=== PATIENT | female | born 1935 | race Caucasian/White ===

== ENCOUNTER 2017-11-20 18:14 | Observation (INO) | payer MEDICARE ==
[~2017-11-20] VITALS: Ht 162.6 cm; Wt 73.0 kg
[~2017-11-20 18:14] MED LIST: CHOL100024 PO; HYDR-569 PO; INSU100V36 SQ
[2017-11-20 18:52] LABS: BASOPHILS # (AUTO) 0.1 X10'3 (0-0.2); BASOPHILS % (AUTO) 0.9 % (0-1); EOSINOPHILS # (AUTO) 0.1 X10'3 (0-0.9); EOSINOPHILS % (AUTO) 2.3 % (0-6); HEMATOCRIT 41.5 % (35.0-45.0); HEMOGLOBIN 13.9 g/dl (12.0-16.0); LYMPHOCYTES # (AUTO) 1.7 X10'3 (1.1-4.8); LYMPHOCYTES % (AUTO) 28.6 % (21-51); MEAN CORPUSCULAR HEMOGLOBIN 31.8 PG (27.0-31.0); MEAN CORPUSCULAR HGB CONC 33.4 % (33.0-36.5); MEAN CORPUSCULAR VOLUME 95.2 FL (78-98); MEAN PLATELET VOLUME 8.3 FL (7.4-10.4); MONOCYTES # (AUTO) 0.5 X10'3 (0-0.9); MONOCYTES % (AUTO) 8.8 % (2-12); NEUTROPHILS # (AUTO) 3.6 X10'3 (1.8-7.7); NEUTROPHILS % (AUTO) 59.4 % (42-75); PLATELET COUNT 250 X10'3 (140-440); RED BLOOD COUNT 4.36 X10'6 (4.20-5.60); RED CELL DISTRIBUTION WIDTH 12.9 % (11.5-14.5)
[2017-11-20 19:01] LABS: PARTIAL THROMBOPLASTIN TIME 29 SECONDS (22-32); PROTHROMBIN TIME 10.7 SECONDS (9.0-12.0)
[2017-11-20 19:04] LABS: ALANINE AMINOTRANSFERASE 30 U/L (12-78); ALBUMIN 3.7 G/DL (3.4-5.0); ALBUMIN/GLOBULIN RATIO 0.9 (1.1-1.5); ALKALINE PHOSPHATASE 97 IU/L (46-116); ANION GAP 10 (8-16); ASPARTATE AMINO TRANSFERASE 24 U/L (10-37); BILIRUBIN,TOTAL 0.7 MG/DL (0.1-1.0); BLOOD UREA NITROGEN 20 MG/DL (7-18); BUN/CREATININE RATIO 19.2 (6.6-38.0); CALCIUM 9.8 MG/DL (8.5-10.1); CHLORIDE 101 MMOL/L (99-107); CREATININE 1.04 MG/DL (0.40-0.90); GLUCOSE 298 MG/DL (70-104); POTASSIUM 3.8 MMOL/L (3.5-5.1); SODIUM 139 MMOL/L (135-145); TOTAL CARBON DIOXIDE 27.6 MMOL/L (24-32); TOTAL PROTEIN 7.7 G/DL (6.4-8.2); eGFR 51 ML/MIN
[2017-11-20] MEDS ORDERED: cloNIDine 0.1 mg tablet PO ONE (20:25)
[2017-11-20] MEDS ORDERED: ESTR42.53 VG (21:18)
[2017-11-20] MEDS ORDERED: ASPI-920 PO (21:18)
[2017-11-20] MEDS ORDERED: DORZ10DR18 EACHEYE (21:19)
[2017-11-20] MEDS ORDERED: INSU300I (21:19)
[2017-11-21] VITALS (7 sets, daily range): BP systolic 122–174; BP diastolic 47–73
[2017-11-21] MEDS ORDERED: normal saline 1000ml 1,000 ML IV ONE
[2017-11-21] MEDS ORDERED: MESSAGE TO PHARMACY PO ONE (01:40)
[2017-11-21] MEDS ORDERED: insulin Lispro (HumaLOG) vial - multi-dose SQ SCH (01:40)
[2017-11-21] MEDS ORDERED: mag hydrox/Alum hydrox/simeth 30ml oral suspension PO PRN (01:40)
[2017-11-21] MEDS ORDERED: magnesium hydroxide 30ml (MOM) UD suspension PO PRN (01:40)
[2017-11-21] MEDS ORDERED: glucagon, human recombinant 1mg kit SUBCUT PRN (01:40)
[2017-11-21] MEDS ORDERED: bisacodyl 10mg suppository rectal RC PRN (01:40)
[2017-11-21] MEDS ORDERED: dextrose ORAL solution 15 GM/59 ML bottle PO PRN ×2 (01:40)
[2017-11-21] MEDS ORDERED: dextrose 50%-water 50ml dispensing syringe IV PRN ×2 (01:40)
[2017-11-21] MEDS ORDERED: acetaminophen 325mg tablet PO PRN (01:40)
[2017-11-21 02:11] LABS: CLARITY,URINE SLIGHTLY CLOUDY (Clear); COLOR,URINE STRAW (Yellow); GLUCOSE, URINE NEGATIVE (Neg); KETONES,URINE NEGATIVE (Neg); LEUKOCYTE ESTERASE ,URINE LARGE (Neg); NITRITES, URINE POSITIVE (Neg); OCCULT BLOOD,URINE TRACE-INTACT (Neg); PROTEIN,URINE TRACE mg/dl (Neg); UROBILINOGEN,URINE 0.2 E.U/dL (0.2-1.0)
[2017-11-21 02:12] LABS: UA COLLECTION TYPE CLN CATCH MIDSTREAM
[2017-11-21 02:16] LABS: WBC,URINE 50-100 /HPF (0-4)
[2017-11-21 02:17] LABS: BACTERIA,URINE 4+ /HPF (Neg); MUCUS STRANDS FEW /LPF (Neg); RBC,URINE 0-2 /HPF (0-2); SQUAMOUS EPITHELIAL CELL,UR FEW /LPF (FEW)
[2017-11-21] MEDS ORDERED: ESTRADIOL TOP SCH (06:45)
[2017-11-21 07:32] LABS: HEMOGLOBIN A1C 8.5 % (4.5-6.2)
[2017-11-21] MEDS: dorzolamide/timolol (Cosopt) ophthalmic drops 10ml bottle EACHEYE SCH (08:00)
[2017-11-21] MEDS ORDERED: lisinopril 2.5mg tablet PO SCH (08:00)
[2017-11-21] MEDS ORDERED: lisinopril 5mg tablet PO SCH (09:00)
[2017-11-21] MEDS ORDERED: hydrALAZINE 20mg/ml inj. IV PRN (09:00)
[2017-11-21] MEDS: aspirin 81mg tab.chew PO SCH (09:21)
[2017-11-21] MEDS ORDERED: insulin glargine (Lantus) pen - multi-dose SQ SCH (21:00)
[2017-11-22 03:00] VITALS: BP 158/57
[2017-11-22 05:32] LABS: BASOPHILS % (AUTO) 0.6 % (0-1); EOSINOPHILS # (AUTO) 0.4 X10'3 (0-0.9); EOSINOPHILS % (AUTO) 6.1 % (0-6); HEMATOCRIT 34.2 % (35.0-45.0); HEMOGLOBIN 11.6 g/dl (12.0-16.0); LYMPHOCYTES # (AUTO) 1.7 X10'3 (1.1-4.8); LYMPHOCYTES % (AUTO) 29.4 % (21-51); MEAN CORPUSCULAR HEMOGLOBIN 32.1 PG (27.0-31.0); MEAN CORPUSCULAR VOLUME 94.2 FL (78-98); MEAN PLATELET VOLUME 8.7 FL (7.4-10.4); MONOCYTES # (AUTO) 0.7 X10'3 (0-0.9); MONOCYTES % (AUTO) 11.8 % (2-12); NEUTROPHILS % (AUTO) 52.1 % (42-75); PLATELET COUNT 208 X10'3 (140-440); RED BLOOD COUNT 3.63 X10'6 (4.20-5.60); RED CELL DISTRIBUTION WIDTH 13.1 % (11.5-14.5); WHITE BLOOD COUNT 5.7 X10'3 (4.5-11.0)
[2017-11-22 05:49] LABS: ALANINE AMINOTRANSFERASE 17 U/L (12-78); ALBUMIN 2.8 G/DL (3.4-5.0); ALBUMIN/GLOBULIN RATIO 0.8 (1.1-1.5); ALKALINE PHOSPHATASE 72 IU/L (46-116); ANION GAP 4 (8-16); ASPARTATE AMINO TRANSFERASE 14 U/L (10-37); BILIRUBIN,TOTAL 0.5 MG/DL (0.1-1.0); BLOOD UREA NITROGEN 19 MG/DL (7-18); BUN/CREATININE RATIO 21.3 (6.6-38.0); CALCIUM 9.3 MG/DL (8.5-10.1); CHLORIDE 108 MMOL/L (99-107); CREATININE 0.89 MG/DL (0.40-0.90); GLUCOSE 102 MG/DL (70-104); MAGNESIUM 2.1 MG/DL (1.5-2.4); POTASSIUM 3.8 MMOL/L (3.5-5.1); SODIUM 143 MMOL/L (135-145); TOTAL CARBON DIOXIDE 31.2 MMOL/L (24-32); TOTAL PROTEIN 6.1 G/DL (6.4-8.2); eGFR 61 ML/MIN
[2017-11-22 06:45] VITALS: BP 208/74
[2017-11-22 06:55] VITALS: BP 204/79
[2017-11-22] MEDS: aspirin 81mg tab.chew PO SCH (06:58)
[2017-11-22 07:50] VITALS: BP 163/66
[2017-11-22] MEDS ORDERED: chlorthalidone 25mg tablet PO SCH (08:00)
[2017-11-22] MEDS: dorzolamide/timolol (Cosopt) ophthalmic drops 10ml bottle EACHEYE SCH (08:38)
[2017-11-22] MEDS ORDERED: CHLO25TA11 PO (09:39)
[2017-11-22 11:00] VITALS: BP 193/76
[2017-11-22 12:41] VITALS: BP 155/71
== END 2017-11-22 13:10 | disposition home or self-care (01) ==
LOC: ER 18:15 → EEVIPCON 11-21 01:44 → ED HOLD 11-21 01:44 → PCU 3S 11-21 02:26
PROVIDERS: ADMIT Emergency Medicine; ATTEND Internal Medicine
DX: I10 Essential (primary) hypertension (principal); B96.89 Other specified bacterial agents as the cause of diseases classified elsewhere; N39.0 Urinary tract infection, site not specified; I65.23 Occlusion and stenosis of bilateral carotid arteries; E11.621 Type 2 diabetes mellitus with foot ulcer; H35.30 Unspecified macular degeneration; H40.9 Unspecified glaucoma; I16.0 Hypertensive urgency; L97.419 Non-pressure chronic ulcer of right heel and midfoot with unspecified severity; L97.429 Non-pressure chronic ulcer of left heel and midfoot with unspecified severity; Z86.73 Personal history of transient ischemic attack (TIA), and cerebral infarction without residual deficits; Z79.84 Long term (current) use of oral hypoglycemic drugs; Z79.82 Long term (current) use of aspirin
CPT/HCPCS: 36415; 70450; 71045; 80053; 81001; 82533; 82948; 83036; 83735; 83880; 84484; 85025; 85610; 85730; 87070; 87077; 87088; 87186; 93005; 93306; 93880; 96361; 96372; 96374; 99285; A6212; G0378; J0360; J1815; J7030; 96360

== ENCOUNTER 2018-01-10 11:44 | Emergency (ER) | payer MEDICARE ==
[~2018-01-10] VITALS: Ht 162.6 cm; Wt 72.0 kg
[~2018-01-10 11:44] MED LIST changes: +ASPI-920 PO; +CHLO25TA11 PO; -CHOL100024 PO; +DORZ10DR18 EACHEYE; +ESTR42.53 VG; -HYDR-569 PO; -INSU100V36 SQ; +INSU300I
[2018-01-10 11:49] VITALS: BP 248/101
[2018-01-10] MEDS ORDERED: vancomycin/NS 1 GM ADD-VANTAGE 250 ML IV ONE (12:10)
[2018-01-10] MEDS ORDERED: piperacillin/tazo 3.375gm/50ml 50 ML IV ONE (12:10)
[2018-01-10] MEDS ORDERED: LIDOcaine 1% 30ml preserv. free vial IJ ONE (12:25)
[2018-01-10 12:30] LABS: BASOPHILS % (AUTO) 0.3 % (0-1); EOSINOPHILS # (AUTO) 0.1 X10'3 (0-0.9); EOSINOPHILS % (AUTO) 1.6 % (0-6); HEMATOCRIT 38.8 % (35.0-45.0); HEMOGLOBIN 13.3 g/dl (12.0-16.0); LYMPHOCYTES # (AUTO) 1.1 X10'3 (1.1-4.8); LYMPHOCYTES % (AUTO) 12.5 % (21-51); MEAN CORPUSCULAR HEMOGLOBIN 32.1 PG (27.0-31.0); MEAN CORPUSCULAR HGB CONC 34.3 % (33.0-36.5); MEAN CORPUSCULAR VOLUME 93.5 FL (78-98); MEAN PLATELET VOLUME 7.9 FL (7.4-10.4); MONOCYTES # (AUTO) 0.6 X10'3 (0-0.9); MONOCYTES % (AUTO) 6.4 % (2-12); NEUTROPHILS % (AUTO) 79.2 % (42-75); PLATELET COUNT 303 X10'3 (140-440); RED BLOOD COUNT 4.15 X10'6 (4.20-5.60); RED CELL DISTRIBUTION WIDTH 12.5 % (11.5-14.5); WHITE BLOOD COUNT 8.8 X10'3 (4.5-11.0)
[2018-01-10 12:48] LABS: ALANINE AMINOTRANSFERASE 24 U/L (12-78); ALBUMIN 3.4 G/DL (3.4-5.0); ALBUMIN/GLOBULIN RATIO 0.8 (1.1-1.5); ALKALINE PHOSPHATASE 125 IU/L (46-116); ANION GAP 10 (8-16); ASPARTATE AMINO TRANSFERASE 18 U/L (10-37); BILIRUBIN,TOTAL 0.6 MG/DL (0.1-1.0); BLOOD UREA NITROGEN 17 MG/DL (7-18); BUN/CREATININE RATIO 15.2 (6.6-38.0); C-REACTIVE PROTEIN 1.97 MG/DL (0.0-0.5); CALCIUM 9.4 MG/DL (8.5-10.1); CHLORIDE 99 MMOL/L (99-107); CREATININE 1.12 MG/DL (0.40-0.90); GLUCOSE 243 MG/DL (70-104); MAGNESIUM 1.7 MG/DL (1.5-2.4); POTASSIUM 3.9 MMOL/L (3.5-5.1); SODIUM 134 MMOL/L (135-145); TOTAL CARBON DIOXIDE 24.8 MMOL/L (24-32); TOTAL PROTEIN 7.8 G/DL (6.4-8.2); eGFR 47 ML/MIN
[2018-01-10 12:50] LABS: PROTHROMBIN TIME 10.7 SECONDS (9.0-12.0)
[2018-01-10] MEDS ORDERED: LIDOcaine 1%/PF 5ML 10 MG/ML VIAL IJ ONE (12:50)
[2018-01-10] MEDS ORDERED: CLIN150C8 PO (14:18)
[2018-01-10] MEDS ORDERED: DOXY100C43 PO (14:18)
[2018-01-10] MEDS ORDERED: HYDROcodone/acetaminophen 5mg/325mg tablet PO ONE (16:35)
== END 2018-01-10 17:10 | disposition home or self-care (01) ==
LOC: ER 11:45
DX: E11.621 Type 2 diabetes mellitus with foot ulcer (principal); Z88.2 Allergy status to sulfonamides; Z79.82 Long term (current) use of aspirin; Z79.899 Other long term (current) drug therapy; Z79.4 Long term (current) use of insulin
CPT/HCPCS: 36415; 71045; 73630; 80053; 82948; 83735; 84145; 85025; 85610; 86140; 96365; 96366; 96368; 99285; A6266; A6446; A6449; J2001; J2543; J3370; J7030

== ENCOUNTER 2018-01-11 11:39 | Emergency (ER) | payer MEDICARE ==
[~2018-01-11] VITALS: Ht 165.1 cm; Wt 72.0 kg
[~2018-01-11 11:39] MED LIST changes: +CLIN150C8 PO; +DOXY100C43 PO
[2018-01-11 12:10] VITALS: BP 137/62
== END 2018-01-11 13:54 | disposition home or self-care (01) ==
LOC: ER 11:40
DX: L97.519 Non-pressure chronic ulcer of other part of right foot with unspecified severity (principal); E11.9 Type 2 diabetes mellitus without complications; Z88.2 Allergy status to sulfonamides; Z88.8 Allergy status to other drugs, medicaments and biological substances; Z79.82 Long term (current) use of aspirin; Z79.899 Other long term (current) drug therapy; Z79.84 Long term (current) use of oral hypoglycemic drugs
CPT/HCPCS: 99284

== ENCOUNTER 2018-01-14 09:29 | Day surgery (SDC) | payer MEDICARE ==
[2018-01-14] MEDS ORDERED: LIDOcaine 2% 5ml jelly ONE (11:20)
[2018-01-14] MEDS ORDERED: HYDR-569 PO (12:06)
== END 2018-01-14 12:17 | disposition home or self-care (01) ==
LOC: WOUND CARE 09:29
PROVIDERS: ATTEND Surgery
DX: E11.621 Type 2 diabetes mellitus with foot ulcer (principal); L97.412 Non-pressure chronic ulcer of right heel and midfoot with fat layer exposed; L97.421 Non-pressure chronic ulcer of left heel and midfoot limited to breakdown of skin; E11.65 Type 2 diabetes mellitus with hyperglycemia; E11.40 Type 2 diabetes mellitus with diabetic neuropathy, unspecified; I10 Essential (primary) hypertension; Z79.82 Long term (current) use of aspirin; Z79.84 Long term (current) use of oral hypoglycemic drugs; Z79.899 Other long term (current) drug therapy; Z79.4 Long term (current) use of insulin; Z86.73 Personal history of transient ischemic attack (TIA), and cerebral infarction without residual deficits
CPT/HCPCS: 11042; 36416; 82948; 87070; 87075; 87102; 87176; A4649; A6196; A6206; A6209; 87076; 87077; 87185; 87186; L3260

== ENCOUNTER 2018-01-17 08:28 | Day surgery (SDC) | payer MEDICARE ==
[~2018-01-17 08:28] MED LIST changes: +HYDR-569 PO
[2018-01-17] MEDS ORDERED: LIDOcaine 2% 5ml jelly ONE (09:11)
== END 2018-01-17 10:22 | disposition home or self-care (01) ==
LOC: WOUND CARE 08:28
PROVIDERS: ATTEND Surgery
DX: E11.621 Type 2 diabetes mellitus with foot ulcer (principal); L97.413 Non-pressure chronic ulcer of right heel and midfoot with necrosis of muscle; L97.421 Non-pressure chronic ulcer of left heel and midfoot limited to breakdown of skin; E11.65 Type 2 diabetes mellitus with hyperglycemia; E11.40 Type 2 diabetes mellitus with diabetic neuropathy, unspecified; I10 Essential (primary) hypertension; M19.90 Unspecified osteoarthritis, unspecified site; Z79.82 Long term (current) use of aspirin; Z79.84 Long term (current) use of oral hypoglycemic drugs; Z79.899 Other long term (current) drug therapy; Z79.4 Long term (current) use of insulin; Z86.73 Personal history of transient ischemic attack (TIA), and cerebral infarction without residual deficits; Z89.422 Acquired absence of other left toe(s)
CPT/HCPCS: 11043; 36416; 82948; A6021; A6206; A6209; A6212; A6446

== ENCOUNTER 2018-01-21 08:23 | Day surgery (SDC) | payer MEDICARE ==
[2018-01-21] MEDS ORDERED: LIDOcaine 2% 5ml jelly ONE (09:49)
== END 2018-01-21 11:10 | disposition home or self-care (01) ==
LOC: WOUND CARE 08:23
PROVIDERS: ATTEND Surgery
DX: E11.621 Type 2 diabetes mellitus with foot ulcer (principal); L97.413 Non-pressure chronic ulcer of right heel and midfoot with necrosis of muscle; L97.421 Non-pressure chronic ulcer of left heel and midfoot limited to breakdown of skin; E11.65 Type 2 diabetes mellitus with hyperglycemia; E11.40 Type 2 diabetes mellitus with diabetic neuropathy, unspecified; I10 Essential (primary) hypertension; M19.90 Unspecified osteoarthritis, unspecified site; Z79.82 Long term (current) use of aspirin; Z79.84 Long term (current) use of oral hypoglycemic drugs; Z79.899 Other long term (current) drug therapy; Z79.4 Long term (current) use of insulin; Z86.73 Personal history of transient ischemic attack (TIA), and cerebral infarction without residual deficits; Z89.422 Acquired absence of other left toe(s)
CPT/HCPCS: 11044; 36416; 82948; A4414; A6206; A6209; A6446

== ENCOUNTER 2018-01-25 08:36 | Day surgery (SDC) | payer MEDICARE ==
[2018-01-25] MEDS ORDERED: LIDOcaine 2% 5ml jelly ONE (09:52)
[2018-01-25] MEDS ORDERED: LEVO500T2 PO (13:55)
== END 2018-01-25 12:43 | disposition home or self-care (01) ==
LOC: WOUND CARE 08:36
PROVIDERS: ATTEND Surgery
DX: E11.621 Type 2 diabetes mellitus with foot ulcer (principal); L97.413 Non-pressure chronic ulcer of right heel and midfoot with necrosis of muscle; L97.421 Non-pressure chronic ulcer of left heel and midfoot limited to breakdown of skin; E11.65 Type 2 diabetes mellitus with hyperglycemia; E11.40 Type 2 diabetes mellitus with diabetic neuropathy, unspecified; I10 Essential (primary) hypertension; M19.90 Unspecified osteoarthritis, unspecified site; Z79.82 Long term (current) use of aspirin; Z79.84 Long term (current) use of oral hypoglycemic drugs; Z79.899 Other long term (current) drug therapy; Z79.4 Long term (current) use of insulin; Z86.73 Personal history of transient ischemic attack (TIA), and cerebral infarction without residual deficits; Z89.422 Acquired absence of other left toe(s)
CPT/HCPCS: 11043; 36416; 82948; 97605; A4414; A4456

== ENCOUNTER 2018-01-28 08:10 | Day surgery (SDC) | payer MEDICARE ==
[~2018-01-28 08:10] MED LIST changes: +LEVO500T2 PO
[2018-01-28] MEDS ORDERED: LIDOcaine 2% 5ml jelly ONE (10:00)
== END 2018-01-28 12:27 | disposition home or self-care (01) ==
LOC: WOUND CARE 08:10
PROVIDERS: ATTEND Surgery
DX: E11.621 Type 2 diabetes mellitus with foot ulcer (principal); L97.413 Non-pressure chronic ulcer of right heel and midfoot with necrosis of muscle; L97.421 Non-pressure chronic ulcer of left heel and midfoot limited to breakdown of skin; E11.65 Type 2 diabetes mellitus with hyperglycemia; E11.40 Type 2 diabetes mellitus with diabetic neuropathy, unspecified; I10 Essential (primary) hypertension; M19.90 Unspecified osteoarthritis, unspecified site; Z79.82 Long term (current) use of aspirin; Z79.84 Long term (current) use of oral hypoglycemic drugs; Z79.899 Other long term (current) drug therapy; Z79.4 Long term (current) use of insulin; Z86.73 Personal history of transient ischemic attack (TIA), and cerebral infarction without residual deficits; Z89.422 Acquired absence of other left toe(s)
CPT/HCPCS: 11043; 36416; 73718; 82948; 93922; 93925; 97605; A6446; A4456

== ENCOUNTER 2018-02-01 08:20 | Day surgery (SDC) | payer MEDICARE ==
[~2018-02-01 08:20] MED LIST changes: -DOXY100C43 PO
[2018-02-01] MEDS ORDERED: LIDOcaine 2% 5ml jelly ONE (09:43)
[2018-02-01 11:32] LABS: ANION GAP 4 (8-16); BILIRUBIN,TOTAL 0.5 MG/DL (0.1-1.0); BLOOD UREA NITROGEN 21 MG/DL (7-18); BUN/CREATININE RATIO 19.3 (6.6-38.0); CALCIUM 9.8 MG/DL (8.5-10.1); CHLORIDE 99 MMOL/L (99-107); CREATININE 1.09 MG/DL (0.40-0.90); GLUCOSE 176 MG/DL (70-104); POTASSIUM 3.9 MMOL/L (3.5-5.1); SODIUM 134 MMOL/L (135-145); TOTAL CARBON DIOXIDE 30.7 MMOL/L (24-32); TOTAL PROTEIN 7.9 G/DL (6.4-8.2); eGFR 48 ML/MIN
[2018-02-01 11:33] LABS: ALANINE AMINOTRANSFERASE 20 U/L (12-78); ALBUMIN 3.1 G/DL (3.4-5.0); ALBUMIN/GLOBULIN RATIO 0.6 (1.1-1.5); ALKALINE PHOSPHATASE 93 IU/L (46-116); ASPARTATE AMINO TRANSFERASE 14 U/L (10-37)
== END 2018-02-01 11:33 | disposition home or self-care (01) ==
LOC: WOUND CARE 08:20
PROVIDERS: ATTEND Surgery
DX: E11.621 Type 2 diabetes mellitus with foot ulcer (principal); L97.413 Non-pressure chronic ulcer of right heel and midfoot with necrosis of muscle; L97.421 Non-pressure chronic ulcer of left heel and midfoot limited to breakdown of skin; E11.65 Type 2 diabetes mellitus with hyperglycemia; E11.40 Type 2 diabetes mellitus with diabetic neuropathy, unspecified; I10 Essential (primary) hypertension; M19.90 Unspecified osteoarthritis, unspecified site; Z79.82 Long term (current) use of aspirin; Z79.84 Long term (current) use of oral hypoglycemic drugs; Z79.899 Other long term (current) drug therapy; Z79.4 Long term (current) use of insulin; Z86.73 Personal history of transient ischemic attack (TIA), and cerebral infarction without residual deficits; Z89.422 Acquired absence of other left toe(s)
CPT/HCPCS: 11043; 36415; 36416; 80053; 82948; 97605; A6222; A6446

== ENCOUNTER 2018-02-06 08:00 | Day surgery (SDC) | payer MEDICARE ==
[2018-02-06] MEDS ORDERED: LIDOcaine 2% 5ml jelly ONE ×2 (09:54→10:17)
== END 2018-02-06 10:56 | disposition home or self-care (01) ==
LOC: WOUND CARE 08:00
PROVIDERS: ATTEND Surgery
DX: E11.621 Type 2 diabetes mellitus with foot ulcer (principal); L97.413 Non-pressure chronic ulcer of right heel and midfoot with necrosis of muscle; L97.421 Non-pressure chronic ulcer of left heel and midfoot limited to breakdown of skin; E11.65 Type 2 diabetes mellitus with hyperglycemia; E11.40 Type 2 diabetes mellitus with diabetic neuropathy, unspecified; I10 Essential (primary) hypertension; M19.90 Unspecified osteoarthritis, unspecified site; Z79.82 Long term (current) use of aspirin; Z79.84 Long term (current) use of oral hypoglycemic drugs; Z79.899 Other long term (current) drug therapy; Z79.4 Long term (current) use of insulin; Z86.73 Personal history of transient ischemic attack (TIA), and cerebral infarction without residual deficits; Z89.422 Acquired absence of other left toe(s)
CPT/HCPCS: 11042; 36416; 82948; 97605; A6222

== ENCOUNTER 2018-02-08 08:39 | Day surgery (SDC) | payer MEDICARE ==
[~2018-02-08] VITALS: Ht 167.6 cm; Wt 72.5 kg
[2018-02-08] MEDS ORDERED: LEVO750T21 PO (09:32)
[2018-02-08 10:15] VITALS: BP 152/80
[2018-02-08 10:44] LABS: BASOPHILS % (AUTO) 0.2 % (0-1); EOSINOPHILS % (AUTO) 0.4 % (0-6); HEMATOCRIT 34.4 % (35.0-45.0); HEMOGLOBIN 11.8 g/dl (12.0-16.0); LYMPHOCYTES # (AUTO) 1.1 X10'3 (1.1-4.8); LYMPHOCYTES % (AUTO) 9.8 % (21-51); MEAN CORPUSCULAR HEMOGLOBIN 31.6 PG (27.0-31.0); MEAN CORPUSCULAR HGB CONC 34.2 % (33.0-36.5); MEAN CORPUSCULAR VOLUME 92.3 FL (78-98); MEAN PLATELET VOLUME 8.3 FL (7.4-10.4); MONOCYTES % (AUTO) 8.6 % (2-12); PLATELET COUNT 309 X10'3 (140-440); RED BLOOD COUNT 3.72 X10'6 (4.20-5.60); RED CELL DISTRIBUTION WIDTH 12.6 % (11.5-14.5); WHITE BLOOD COUNT 11.1 X10'3 (4.5-11.0)
[2018-02-08 10:55] LABS: INR 1.1 INR; PARTIAL THROMBOPLASTIN TIME 35 SECONDS (22-32); PROTHROMBIN TIME 11.7 SECONDS (9.0-12.0)
[2018-02-08 10:59] LABS: ALBUMIN 2.8 G/DL (3.4-5.0); ANION GAP 7 (8-16); BLOOD UREA NITROGEN 17 MG/DL (7-18); BUN/CREATININE RATIO 16.7 (6.6-38.0); CALCIUM 9.5 MG/DL (8.5-10.1); CHLORIDE 99 MMOL/L (99-107); CHOL/HDL RATIO 2.6 (0.00-4.99); CHOLESTEROL 161 MG/DL (0-200); CREATININE 1.02 MG/DL (0.40-0.90); GLUCOSE 144 MG/DL (70-104); HDL CHOLESTEROL 62 MG/DL (35-60); LDL CHOLESTEROL 87 MG/DL (50-100); POTASSIUM 3.6 MMOL/L (3.5-5.1); SODIUM 134 MMOL/L (135-145); TOTAL CARBON DIOXIDE 28.1 MMOL/L (24-32); TRIGLYCERIDES 54 MG/DL (20-135); eGFR 52 ML/MIN
[2018-02-08] MEDS ORDERED: CHLO25TA2 PO (10:59)
[2018-02-08] MEDS ORDERED: CLIN-100 PO (10:59)
[2018-02-08] MEDS ORDERED: iohexol 350MG/ML 100ml bottle IV ONE (11:14)
[2018-02-08] MEDS ORDERED: iohexol 350 MG/ML 50ML vial IV ONE (11:20)
[2018-02-08 12:00] VITALS: BP 144/72
== END 2018-02-08 13:10 | disposition home or self-care (01) ==
LOC: SSTAY O 08:39
PROVIDERS: ATTEND Surgery
DX: I70.293 Other atherosclerosis of native arteries of extremities, bilateral legs (principal); K44.9 Diaphragmatic hernia without obstruction or gangrene; M71.22 Synovial cyst of popliteal space [Baker], left knee; M71.21 Synovial cyst of popliteal space [Baker], right knee; K43.9 Ventral hernia without obstruction or gangrene; E11.65 Type 2 diabetes mellitus with hyperglycemia; E11.22 Type 2 diabetes mellitus with diabetic chronic kidney disease; I12.9 Hypertensive chronic kidney disease with stage 1 through stage 4 chronic kidney disease, or unspecified chronic kidney disease; M19.90 Unspecified osteoarthritis, unspecified site; N18.2 Chronic kidney disease, stage 2 (mild); E11.40 Type 2 diabetes mellitus with diabetic neuropathy, unspecified; E11.621 Type 2 diabetes mellitus with foot ulcer; L97.412 Non-pressure chronic ulcer of right heel and midfoot with fat layer exposed; E78.5 Hyperlipidemia, unspecified; Z79.82 Long term (current) use of aspirin; Z79.2 Long term (current) use of antibiotics; Z79.4 Long term (current) use of insulin; Z88.2 Allergy status to sulfonamides; Z88.1 Allergy status to other antibiotic agents; Z89.422 Acquired absence of other left toe(s); Z79.891 Long term (current) use of opiate analgesic; Z79.84 Long term (current) use of oral hypoglycemic drugs; Z86.73 Personal history of transient ischemic attack (TIA), and cerebral infarction without residual deficits; Z79.899 Other long term (current) drug therapy; Z98.890 Other specified postprocedural states; Z88.8 Allergy status to other drugs, medicaments and biological substances
CPT/HCPCS: 36415; 75635; 80048; 80061; 85025; 85610; 85730; A6402; J7030; Q9967

== ENCOUNTER 2018-02-13 08:07 | Day surgery (SDC) | payer MEDICARE ==
[~2018-02-13 08:07] MED LIST changes: -CHLO25TA11 PO; +CHLO25TA2 PO; +CLIN-100 PO; -CLIN150C8 PO; -LEVO500T2 PO; +LEVO750T21 PO
[2018-02-13] MEDS: LIDOcaine 2% 5ml jelly ONE ×2 (09:39→10:30)
== END 2018-02-13 11:16 | disposition home or self-care (01) ==
LOC: WOUND CARE 08:07
PROVIDERS: ATTEND Surgery
DX: E11.621 Type 2 diabetes mellitus with foot ulcer (principal); L97.413 Non-pressure chronic ulcer of right heel and midfoot with necrosis of muscle; L97.421 Non-pressure chronic ulcer of left heel and midfoot limited to breakdown of skin; E11.65 Type 2 diabetes mellitus with hyperglycemia; E11.40 Type 2 diabetes mellitus with diabetic neuropathy, unspecified; I10 Essential (primary) hypertension; M19.90 Unspecified osteoarthritis, unspecified site; Z79.82 Long term (current) use of aspirin; Z79.84 Long term (current) use of oral hypoglycemic drugs; Z79.899 Other long term (current) drug therapy; Z79.4 Long term (current) use of insulin; Z86.73 Personal history of transient ischemic attack (TIA), and cerebral infarction without residual deficits; Z89.422 Acquired absence of other left toe(s)
CPT/HCPCS: 11042; 36416; 82948; 97605; A6222; A4456

== ENCOUNTER 2018-02-15 10:53 | Day surgery (SDC) | payer MEDICARE ==
[2018-02-15] MEDS ORDERED: LIDOcaine 2% 5ml jelly ONE (12:40)
[2018-02-15] MEDS ORDERED: CLOP75TA15 PO (15:43)
== END 2018-02-15 13:15 | disposition home or self-care (01) ==
LOC: WOUND CARE 10:53
PROVIDERS: ATTEND Surgery
DX: E11.621 Type 2 diabetes mellitus with foot ulcer (principal); L97.413 Non-pressure chronic ulcer of right heel and midfoot with necrosis of muscle; L97.421 Non-pressure chronic ulcer of left heel and midfoot limited to breakdown of skin; E11.65 Type 2 diabetes mellitus with hyperglycemia; E11.40 Type 2 diabetes mellitus with diabetic neuropathy, unspecified; I10 Essential (primary) hypertension; M19.90 Unspecified osteoarthritis, unspecified site; Z79.82 Long term (current) use of aspirin; Z79.84 Long term (current) use of oral hypoglycemic drugs; Z79.899 Other long term (current) drug therapy; Z79.4 Long term (current) use of insulin; Z86.73 Personal history of transient ischemic attack (TIA), and cerebral infarction without residual deficits; Z89.422 Acquired absence of other left toe(s)
CPT/HCPCS: 11042; 36416; 82948; 97605; A6207; A4456

== ENCOUNTER 2018-02-18 08:30 | Day surgery (SDC) | payer MEDICARE ==
[~2018-02-18 08:30] MED LIST changes: +CLOP75TA15 PO
[2018-02-18] MEDS ORDERED: LIDOcaine 2% 5ml jelly ONE (09:24)
== END 2018-02-18 11:00 | disposition home or self-care (01) ==
LOC: WOUND CARE 08:30
PROVIDERS: ATTEND Surgery
DX: E11.621 Type 2 diabetes mellitus with foot ulcer (principal); L97.413 Non-pressure chronic ulcer of right heel and midfoot with necrosis of muscle; L97.421 Non-pressure chronic ulcer of left heel and midfoot limited to breakdown of skin; E11.65 Type 2 diabetes mellitus with hyperglycemia; E11.40 Type 2 diabetes mellitus with diabetic neuropathy, unspecified; I10 Essential (primary) hypertension; M19.90 Unspecified osteoarthritis, unspecified site; Z79.82 Long term (current) use of aspirin; Z79.84 Long term (current) use of oral hypoglycemic drugs; Z79.899 Other long term (current) drug therapy; Z79.4 Long term (current) use of insulin; Z86.73 Personal history of transient ischemic attack (TIA), and cerebral infarction without residual deficits; Z89.422 Acquired absence of other left toe(s)
CPT/HCPCS: 11042; 36416; 82948; 87070; 87075; 87077; 87176; 87186; 97605; A6021; A4456

== ENCOUNTER 2022-02-06 16:03 | Emergency (ER) | payer MEDICARE ==
[~2022-02-06] VITALS: Ht 162.6 cm; Wt 68.6 kg
[~2022-02-06 16:03] MED LIST changes: -CLIN-100 PO; +CLIN-142 PO; +HYDR-4383 PO; -HYDR-569 PO
--- NOTE | 2022-02-06 17:15 | NUR ---
PT HAS STENT PLACED BEIND LEFT KNEE BY DR. ATKINSON 2017 FEM POP ON RIGHT SIDE BY DR. PAREDES 2018
--- NOTE | 2022-02-06 17:16 | NUR ---
SWELLING TO LOWER RIGHT LEG, PT DENIES PAIN.
[2022-02-06 17:17] VITALS: BP 190/81
== END 2022-02-07 04:15 | disposition home or self-care (01) ==
LOC: ER 16:04
DX: I73.9 Peripheral vascular disease, unspecified (principal); R60.9 Edema, unspecified; E11.9 Type 2 diabetes mellitus without complications; Z88.1 Allergy status to other antibiotic agents; Z88.2 Allergy status to sulfonamides
CPT/HCPCS: 93971; 99284

== ENCOUNTER 2023-02-23 21:16 | Inpatient (IN) | payer MEDICARE ==
[~2023-02-23] VITALS: Ht 157.5 cm; Wt 82.0 kg
[~2023-02-23 21:16] MED LIST changes: -DORZ10DR18 EACHEYE; +DORZ10DR32 EACHEYE
[2023-02-23] MEDS ORDERED: normal saline 1000ML IV soln IVB ONE ×2 (21:35→22:30)
[2023-02-23] MEDS ORDERED: iohexol 350MG/ML 100ml bottle IV ONE (21:35)
[2023-02-23 22:01] LABS: BASOPHILS % (AUTO) 0.1 % (0-1); EOSINOPHILS % (AUTO) 0.1 % (0-6); HEMATOCRIT 32.3 % (35.0-45.0); HEMOGLOBIN 10.5 g/dl (12.0-16.0); LYMPHOCYTES # (AUTO) 0.2 X10'3 (1.1-4.8); LYMPHOCYTES % (AUTO) 1.2 % (21-51); MEAN CORPUSCULAR HEMOGLOBIN 31.8 PG (27.0-31.0); MEAN CORPUSCULAR HGB CONC 32.4 g/dL (33.0-36.5); MEAN CORPUSCULAR VOLUME 98.2 FL (78-98); MEAN PLATELET VOLUME 8.5 FL (7.4-10.4); MONOCYTES # (AUTO) 0.5 X10'3 (0-0.9); MONOCYTES % (AUTO) 3.5 % (2-12); NEUTROPHILS # (AUTO) 13.7 X10'3 (1.8-7.7); NEUTROPHILS % (AUTO) 95.1 % (42-75); PLATELET COUNT 149 X10'3 (140-440); RED BLOOD COUNT 3.29 X10'6 (4.20-5.60); RED CELL DISTRIBUTION WIDTH 13.9 % (11.5-14.5); WHITE BLOOD COUNT 14.4 X10'3 (4.5-11.0)
[2023-02-23 22:09] LABS: ALANINE AMINOTRANSFERASE 169 U/L (12-78); ALBUMIN 1.7 G/DL (3.4-5.0); ALBUMIN/GLOBULIN RATIO 0.5 (1.1-1.5); ALKALINE PHOSPHATASE 106 IU/L (46-116); ANION GAP 18 (8-16); ASPARTATE AMINO TRANSFERASE 255 U/L (10-37); BILIRUBIN,TOTAL 0.8 MG/DL (0.1-1.0); BLOOD UREA NITROGEN 65 MG/DL (7-18); BUN/CREATININE RATIO 19.1 (10.0-20.0); CALCIUM 8.2 MG/DL (8.5-10.1); CHLORIDE 102 MMOL/L (99-107); GLUCOSE 122 MG/DL (70-104); POTASSIUM 3.3 MMOL/L (3.5-5.1); SODIUM 135 MMOL/L (135-145); TOTAL CARBON DIOXIDE 15.4 MMOL/L (24-32); TOTAL PROTEIN 4.9 G/DL (6.4-8.2); eCRCL 9 ML/MIN; eGFR 13 ML/MIN
[2023-02-23] MEDS ORDERED: CefTRIAXone/D5W-Rocephin 1gm 50 ML IV ONE (22:35)
[2023-02-23] MEDS ORDERED: piperacillin/tazo 3.375gm/50ml 50 ML IV ONE (22:35)
[2023-02-23 22:55] LABS: ABG BASE EXCESS -14.9 mmol/L (-2.0-2.0); ABG HCO3 9.6 mmol/L (22.0-26.0); ABG OXYGEN SATURATION 96.1 % (94-97); ABG PCO2 (T) 20.9 mmHg (32.0-45.0); ABG PH (T) 7.285 (7.350-7.450); ABG PO2 (T) 99.9 mmHg (75.0-100.0); FCOHb 0.3 % (0.0-3.9); FHHb 3.9 % (0.0-5.0); FMetHb 0.1 % (0.0-1.5); FO2Hb 95.7 % (94-97); MODE ROOM AIR; PATIENT TEMPERATURE 38.2; TOTAL HEMOGLOBIN 10.7 G/dl (12.0-16.0)
[2023-02-23 23:10] LABS: BILIRUBIN,URINE NEGATIVE (Neg); CLARITY,URINE TURBID (Clear); COLOR,URINE YELLOW (Yellow); GLUCOSE, URINE NEGATIVE (Neg); KETONES,URINE NEGATIVE (Neg); LEUKOCYTE ESTERASE ,URINE LARGE (Neg); NITRITES, URINE NEGATIVE (Neg); OCCULT BLOOD,URINE LARGE (Neg); PH,URINE 5.5 (4.8-8.0); PROTEIN,URINE >=300 mg/dl (Neg); UROBILINOGEN,URINE 0.2 E.U/dL (0.2-1.0)
[2023-02-23 23:18] LABS: UA COLLECTION TYPE STRAIGHT CATH
[2023-02-23 23:20] LABS: WBC,URINE TNTC /HPF (0-4)
[2023-02-23 23:22] LABS: BACTERIA,URINE 4+ /HPF (Neg); SQUAMOUS EPITHELIAL CELL,UR MANY /LPF (FEW)
[2023-02-23 23:23] LABS: COARSE GRANULAR CAST 0-3 /LPF (NEGATIVE); HYALINE CASTS 0-3 /LPF (NEGATIVE)
[2023-02-23] MEDS ORDERED: ondansetron/PF 4mg/2ml inj IV PRN (23:55)
[2023-02-23] MEDS ORDERED: NORepinephrine 8mg/ 250ml NS 250 ML IV PRN (23:55)
[2023-02-24] MEDS ORDERED: piperacillin/tazo 3.375gm/50ml 50 ML IV SCH
[2023-02-24] MEDS ORDERED: normal saline 1000ML IV soln IVB ONE ×2 (00:15→00:55)
--- NOTE | 2023-02-24 00:24 | NUR ---
PT MORE AWAKE ND ALERT MOVING AROUNFD AND SPEAKING TO FAMILY.
[2023-02-24 00:38] LABS: C-REACTIVE PROTEIN 19.1 MG/DL (0.0-0.5)
[2023-02-24] MEDS ORDERED: NOVLG SQ (02:49)
[2023-02-24] MEDS ORDERED: ESTR42.510 VG (02:49)
[2023-02-24] MEDS ORDERED: LANTUS SQ (02:49)
[2023-02-24] MEDS ORDERED: APIX2.5T PO (02:49)
[2023-02-24] MEDS ORDERED: BIMA2.5D EACHEYE (02:49)
[2023-02-24] MEDS ORDERED: AMI200T PO (02:49)
[2023-02-24] MEDS ORDERED: BRIM5DRO2 EACHEYE (02:49)
[2023-02-24] MEDS: normal saline 1000ml 1,000 ML IV SCH ×2 (06:14→20:00)
--- NOTE | 2023-02-24 06:52 | NUR ---
Patient alert, oriented, hard of hearing, not in obvious distress. Family at bedside.
--- NOTE | 2023-02-24 07:36 | NUR ---
visitors at bedside. pt requesting and given swabs for dry mouth.
[2023-02-24 08:08] LABS: HEMATOCRIT 33.4 % (35.0-45.0); HEMOGLOBIN 10.9 g/dl (12.0-16.0); MEAN CORPUSCULAR HGB CONC 32.6 g/dL (33.0-36.5); MEAN CORPUSCULAR VOLUME 98.4 FL (78-98); MEAN PLATELET VOLUME 8.9 FL (7.4-10.4); PLATELET COUNT 183 X10'3 (140-440); RED CELL DISTRIBUTION WIDTH 14.2 % (11.5-14.5)
[2023-02-24 08:13] LABS: WHITE BLOOD COUNT 26.6 X10'3 (4.5-11.0)
[2023-02-24] MEDS ORDERED: ringers solution, lacted 1,000 ML IV ONE ×2 (08:30→10:50)
[2023-02-24 08:32] LABS: ALBUMIN 1.9 G/DL (3.4-5.0); ALBUMIN/GLOBULIN RATIO 0.5 (1.1-1.5); ALKALINE PHOSPHATASE 119 IU/L (46-116); ANION GAP 18 (8-16); BLOOD UREA NITROGEN 63 MG/DL (7-18); BUN/CREATININE RATIO 17.7 (10.0-20.0); CALCIUM 7.4 MG/DL (8.5-10.1); CHLORIDE 104 MMOL/L (99-107); CREATININE 3.55 MG/DL (0.40-0.90); GLUCOSE 96 MG/DL (70-104); POTASSIUM 3.8 MMOL/L (3.5-5.1); SODIUM 135 MMOL/L (135-145); TOTAL PROTEIN 5.4 G/DL (6.4-8.2); eCRCL 9 ML/MIN; eGFR 12 ML/MIN
[2023-02-24 08:47] LABS: ALANINE AMINOTRANSFERASE 1732 U/L (12-78)
[2023-02-24 08:49] LABS: PLATELET ESTIMATE NORMAL; TOTAL CELLS COUNTED 100
[2023-02-24 08:51] LABS: TOTAL CARBON DIOXIDE 13.3 MMOL/L (24-32)
--- NOTE | 2023-02-24 08:53 | NUR ---
Dr. Jamison came by to see patient. She spoke to the patient and 2 daughters at bedside.
--- NOTE | 2023-02-24 08:54 | NUR ---
Per Dr. Jamison, our MAP goal is 60 and that we can wean off Levophed as necessary and hopefully to d/c the levo drip and take out the SC central line catheter.
[2023-02-24 09:11] LABS: ASPARTATE AMINO TRANSFERASE 2980 U/L (10-37)
--- NOTE | 2023-02-24 09:28 | NUR ---
Called Dr. Jamison to relay results of elevated troponin 5271, CO2 13.3, positive blood culture result - gram negative rods in aerobic bottle. I also let her know that the current urine output was only 5 ml and that second liter of LR ongoing currently. She said she will also change the code status to DNR. She has spoken to the daughter at bedside during her rounds to verify patient's wish in terms of resuscitation
[2023-02-24] MEDS: piperacillin/tazo 3.375gm/50ml 50 ML IV SCH ×2 (09:43→23:57)
[2023-02-24 10:49] LABS: C DIFF ANTIGEN NEGATIVE (NEGATIVE); C DIFF SPECIMEN=DIARRHEA? ACCEPTABLE; C DIFFICILE TOXINS A&B NEGATIVE (Neg)
[2023-02-24] MEDS: metroNIDAZOLE-Flagyl 500mg/NS 100 ML IV SCH ×2 (10:56→20:33)
--- NOTE | 2023-02-24 11:41 | NUR ---
Report given to Alex MELCHOR
[2023-02-24] MEDS ORDERED: DEXTROSE 15 GM of carb/4 tabs (each vial/BOTTLE has 4 tablets) PO PRN ×2 (12:25)
[2023-02-24] MEDS ORDERED: MESSAGE TO PHARMACY PO ONE (12:25)
[2023-02-24] MEDS ORDERED: glucagon, human recombinant 1mg kit SUBCUT PRN (12:25)
[2023-02-24] MEDS ORDERED: insulin Lispro (HumaLOG) vial - multi-dose SQ SCH (12:25)
[2023-02-24] MEDS ORDERED: dextrose 50%-water 50ml dispensing syringe IV PRN ×2 (12:25)
[2023-02-24 12:30] LABS: HEMATOCRIT 30.1 % (35.0-45.0); HEMOGLOBIN 9.9 g/dl (12.0-16.0); MEAN CORPUSCULAR HEMOGLOBIN 32.2 PG (27.0-31.0); MEAN CORPUSCULAR HGB CONC 32.8 g/dL (33.0-36.5); MEAN CORPUSCULAR VOLUME 98.1 FL (78-98); MEAN PLATELET VOLUME 8.6 FL (7.4-10.4); PLATELET COUNT 150 X10'3 (140-440); RED BLOOD COUNT 3.07 X10'6 (4.20-5.60); RED CELL DISTRIBUTION WIDTH 14.1 % (11.5-14.5); WHITE BLOOD COUNT 22.4 X10'3 (4.5-11.0)
[2023-02-24] MEDS ORDERED: ESTRADIOL 1 GM VG PRN (12:35)
[2023-02-24] MEDS ORDERED: aspirin 81mg tab.chew PO ONE (12:35)
[2023-02-24 13:01] LABS: ALBUMIN 1.7 G/DL (3.4-5.0); ALBUMIN/GLOBULIN RATIO 0.5 (1.1-1.5); ALKALINE PHOSPHATASE 99 IU/L (46-116); ANION GAP 14 (8-16); BLOOD UREA NITROGEN 60 MG/DL (7-18); BUN/CREATININE RATIO 17.6 (10.0-20.0); CALCIUM 7.2 MG/DL (8.5-10.1); CHLORIDE 106 MMOL/L (99-107); CREATININE 3.41 MG/DL (0.40-0.90); GLUCOSE 94 MG/DL (70-104); SODIUM 136 MMOL/L (135-145); TOTAL CARBON DIOXIDE 15.9 MMOL/L (24-32); TOTAL PROTEIN 4.8 G/DL (6.4-8.2); eCRCL 9 ML/MIN; eGFR 13 ML/MIN
[2023-02-24 13:06] LABS: FREE T4 (FREE THYROXINE) 1.66 NG/DL (0.73-1.40); THYROID STIMULATING HORMONE 1.69 ulU/ml (0.34-4.50)
[2023-02-24 13:08] LABS: HEMOGLOBIN A1C 7.2 % (4.5-6.2)
[2023-02-24 13:10] LABS: ALANINE AMINOTRANSFERASE 1698 U/L (12-78); ASPARTATE AMINO TRANSFERASE 2924 U/L (10-37)
[2023-02-24 13:11] LABS: PLATELET ESTIMATE NORMAL; POLYCHROMASIA FEW
[2023-02-24 13:12] LABS: ANISOCYTOSIS FEW; BURR CELLS 1+; SCHISTOCYTES FEW; TOXIC GRANULATION 1+; TOXIC VACUOLATION 3+
[2023-02-24 13:13] LABS: BANDS% (MANUAL) 10 % (0-10); LYMPHOCYTES % (MANUAL) 1 % (21-51); METAMYLEOCYTES% (MANUAL) 2 % (0-0); MONOCYTES % (MANUAL) 2 % (2-12); NEUTROPHILS % (MANUAL) 85 % (42-75); TOTAL CELLS COUNTED 100
--- NOTE | 2023-02-24 13:26 | NUR ---
titrated the normal saline from 100ml/hr down to 70mls/hr per dr patel verbal order, d/t crackles on the left lower lobe auscultation
--- NOTE | 2023-02-24 14:15 | NUR ---
pt downgraded from ICU status, will be placed accordingly per Dr Knox
--- NOTE | 2023-02-24 16:45 | NUR ---
FAMILY AT BEDSIDE, PT AWAKE AND ALERT
--- NOTE | 2023-02-24 17:38 | NUR ---
DR JOHNSON WILL BE PUTTING IN DOWNGRADED ORDERS FOR PT.
--- NOTE | 2023-02-24 18:42 | NUR ---
assumed care from nicolasa velazquez
[2023-02-24 19:30] VITALS: BP 130/58; PULSE 77; RESP 21; TEMP 97.3; O2SAT 100
[2023-02-24 20:00] VITALS: RESP 18; O2SAT 99
[2023-02-24] MEDS: brimonidine 0.2% 5 ML ophthalmic drops EACHEYE SCH (20:00)
[2023-02-24] MEDS: timolol 0.5% ophthalmic solution 5ml bottle EACHEYE SCH (20:00)
[2023-02-24] MEDS ORDERED: apixaban 2.5mg tablet PO SCH (20:00)
[2023-02-24] MEDS: latanoprost 0.005% 2.5ml ophthalmic drops EACHEYE SCH (20:47)
[2023-02-24 22:00] VITALS: BP 87/47; PULSE 68; RESP 20; TEMP 97.3; O2SAT 99
[2023-02-24] MEDS ORDERED: normal saline 500ml IV soln 500 ML IV ONE (23:15)
[2023-02-24] MEDS: heparin, porcine 5000 units/ml vial SQ SCH (23:53)
[2023-02-25] VITALS (26 sets, daily range): BP systolic 77–152; BP diastolic 49–104; PULSE 64–90; RESP 12–26; TEMP 97.3–98.4; O2SAT 96–100
[2023-02-25] MEDS ORDERED: DOPamine 400mg/D5W 250ml 250 ML IV SCH (01:25)
[2023-02-25] MEDS: normal saline 1000ml 1,000 ML IV SCH (01:51)
[2023-02-25] MEDS: DOPamine 400mg/D5W 250ml 250 ML IV SCH (02:37)
[2023-02-25 05:00] LABS: TOTAL PROTEIN,URINE RANDOM 570.8 MG/DL
--- NOTE | 2023-02-25 07:03 | NUR ---
Patient in room PCU 3026. I have received report from JILL DE LA CRUZ, and had the opportunity to ask questions and assume patient care.
[2023-02-25 07:17] LABS: HEMATOCRIT 31.2 % (35.0-45.0); HEMOGLOBIN 10.1 g/dl (12.0-16.0); MEAN CORPUSCULAR HEMOGLOBIN 31.7 PG (27.0-31.0); MEAN CORPUSCULAR HGB CONC 32.4 g/dL (33.0-36.5); MEAN CORPUSCULAR VOLUME 97.8 FL (78-98); MEAN PLATELET VOLUME 9.1 FL (7.4-10.4); PLATELET COUNT 141 X10'3 (140-440); RED BLOOD COUNT 3.19 X10'6 (4.20-5.60); RED CELL DISTRIBUTION WIDTH 14.5 % (11.5-14.5)
[2023-02-25 07:50] LABS: ALBUMIN/GLOBULIN RATIO 0.6 (1.1-1.5); ALKALINE PHOSPHATASE 126 IU/L (46-116); ANION GAP 18 (8-16); BILIRUBIN,TOTAL 0.9 MG/DL (0.1-1.0); BLOOD UREA NITROGEN 70 MG/DL (7-18); BUN/CREATININE RATIO 17.4 (10.0-20.0); CALCIUM 7.4 MG/DL (8.5-10.1); CHLORIDE 103 MMOL/L (99-107); CREATININE 4.03 MG/DL (0.40-0.90); GLUCOSE 109 MG/DL (70-104); LACTATE DEHYDROGENASE 901 U/L (81-234); SODIUM 135 MMOL/L (135-145); TOTAL PROTEIN 5.4 G/DL (6.4-8.2); eCRCL 8 ML/MIN; eGFR 11 ML/MIN
[2023-02-25 08:02] LABS: ALANINE AMINOTRANSFERASE 2576 U/L (12-78); ASPARTATE AMINO TRANSFERASE 2727 U/L (10-37)
[2023-02-25 08:05] LABS: TOTAL CARBON DIOXIDE 14.2 MMOL/L (24-32)
--- NOTE | 2023-02-25 08:06 | NUR ---
CRITICAL LAB VALUE TAKEN FROM LAB, REPORTED TO PRIMARY RN.
--- NOTE | 2023-02-25 08:12 | NUR ---
PAGE SENT PAGER ID: [phone] MESSAGE: [id number], GUIDO RYDER, CRITICAL LAB: CO2 14.2. THANK YOU, JAYME [id number]
[2023-02-25 08:23] LABS: TOTAL CELLS COUNTED 100
[2023-02-25 08:24] LABS: BURR CELLS 1+; PLATELET ESTIMATE NORMAL; SCHISTOCYTES FEW; TOXIC GRANULATION 1+; TOXIC VACUOLATION 2+
[2023-02-25 08:37] LABS: RHEUM FACTOR QUAL REFLEX TITER NEGATIVE (Neg)
--- NOTE | 2023-02-25 09:06 | NUR ---
Per EMR pt with T2DM, well controlled for age with A1c 7.2%, DM education not warranted at this time. Will continue to follow. Addendum: 02/25/23 at [address] Amended: Links added.
[2023-02-25] MEDS: heparin, porcine 5000 units/ml vial SQ SCH ×2 (09:08→16:57)
[2023-02-25] MEDS: metroNIDAZOLE-Flagyl 500mg/NS 100 ML IV SCH ×2 (09:09→20:17)
[2023-02-25] MEDS: amiodarone 200mg tablet PO SCH (09:09)
[2023-02-25] MEDS ORDERED: levoFLOXACIN-Levaquin 500mg/D5 100 ML IV SCH (09:21)
--- NOTE | 2023-02-25 11:29 | NUR ---
PHARMACIST ASKED HOW PT WAS TOLERATING LEVAQUIN. PT WAS SPEAKING CLEARLY, BREATHING REGULARLY, NO DISTRESS. SKIN ON CHEST AND BACK WAS CLEAR.
[2023-02-25] MEDS: brimonidine 0.2% 5 ML ophthalmic drops EACHEYE SCH ×2 (12:26→20:22)
[2023-02-25] MEDS: timolol 0.5% ophthalmic solution 5ml bottle EACHEYE SCH ×2 (12:29→20:00)
[2023-02-25] MEDS: sodium bicarbonate 1meq/ml inj 150 ML in dextrose 5%-water 1,000 ML IV SCH ×2 (14:11→23:15)
[2023-02-25 17:27] LABS: BASOPHILS % (AUTO) 0.1 % (0-1); EOSINOPHILS # (AUTO) 0.5 X10'3 (0-0.9); EOSINOPHILS % (AUTO) 2.6 % (0-6); HEMOGLOBIN 10.1 g/dl (12.0-16.0); LYMPHOCYTES # (AUTO) 0.3 X10'3 (1.1-4.8); LYMPHOCYTES % (AUTO) 1.4 % (21-51); MEAN CORPUSCULAR HEMOGLOBIN 31.8 PG (27.0-31.0); MEAN CORPUSCULAR HGB CONC 32.7 g/dL (33.0-36.5); MEAN CORPUSCULAR VOLUME 97.5 FL (78-98); MEAN PLATELET VOLUME 9.2 FL (7.4-10.4); MONOCYTES # (AUTO) 0.7 X10'3 (0-0.9); MONOCYTES % (AUTO) 3.6 % (2-12); NEUTROPHILS # (AUTO) 18.8 X10'3 (1.8-7.7); NEUTROPHILS % (AUTO) 92.3 % (42-75); PLATELET COUNT 113 X10'3 (140-440); RED BLOOD COUNT 3.18 X10'6 (4.20-5.60); RED CELL DISTRIBUTION WIDTH 14.4 % (11.5-14.5); WHITE BLOOD COUNT 20.4 X10'3 (4.5-11.0)
--- NOTE | 2023-02-25 18:59 | NUR ---
Problems reprioritized. Patient report given, questions answered & plan of care reviewed with JILL JONES.
--- NOTE | 2023-02-25 19:22 | NUR ---
Patient in room PCU 3026. I have received report from JILL Brenner and had the opportunity to ask questions and assume patient care. Patient is resting comfortably, she just finished dinner and family left. I will continue to monitor.
[2023-02-25] MEDS: latanoprost 0.005% 2.5ml ophthalmic drops EACHEYE SCH (20:23)
[2023-02-26] VITALS (20 sets, daily range): BP systolic 97–163; BP diastolic 61–99; PULSE 53–82; RESP 12–35; TEMP 97.1–98.2; O2SAT 94–99
--- NOTE | 2023-02-26 01:00 | NUR ---
Patient still complaining about SOB, her SpO2 is >92% on 1.5L NC and lungs sounds are diminished. She is still not putting out much urine and getting fluids. Im concerned of fluid overload for her, I paged Dr. Champagne to request we get a CXR and PBNP added to morning labs. Per Dr. Champagne ok to order labs.
--- NOTE | 2023-02-26 02:00 | NUR ---
Patient requesting Tylenol for back pain and she says it also helps her sleep. I paged Dr. Champagne and she said to give her Tylenol 650mg PO now
[2023-02-26] MEDS: acetaminophen 325mg tablet PO PRN ×2 (02:35→20:01)
[2023-02-26] MEDS: ondansetron 4mg rapidly disintigrating tab PO PRN ×2 (03:01→16:05)
[2023-02-26 03:04] LABS: BASOPHILS # (AUTO) 0.1 X10'3 (0-0.2); BASOPHILS % (AUTO) 0.2 % (0-1); EOSINOPHILS # (AUTO) 0.3 X10'3 (0-0.9); EOSINOPHILS % (AUTO) 1.3 % (0-6); HEMATOCRIT 32.2 % (35.0-45.0); HEMOGLOBIN 10.5 g/dl (12.0-16.0); LYMPHOCYTES # (AUTO) 0.3 X10'3 (1.1-4.8); LYMPHOCYTES % (AUTO) 1.5 % (21-51); MEAN CORPUSCULAR HEMOGLOBIN 31.5 PG (27.0-31.0); MEAN CORPUSCULAR HGB CONC 32.5 g/dL (33.0-36.5); MEAN CORPUSCULAR VOLUME 96.8 FL (78-98); MONOCYTES # (AUTO) 0.7 X10'3 (0-0.9); MONOCYTES % (AUTO) 3.3 % (2-12); NEUTROPHILS # (AUTO) 19.4 X10'3 (1.8-7.7); NEUTROPHILS % (AUTO) 93.7 % (42-75); PLATELET COUNT 125 X10'3 (140-440); RED BLOOD COUNT 3.32 X10'6 (4.20-5.60); RED CELL DISTRIBUTION WIDTH 14.6 % (11.5-14.5); WHITE BLOOD COUNT 20.7 X10'3 (4.5-11.0)
[2023-02-26 03:27] LABS: ALBUMIN 1.8 G/DL (3.4-5.0); ALBUMIN/GLOBULIN RATIO 0.5 (1.1-1.5); ALKALINE PHOSPHATASE 142 IU/L (46-116); ANION GAP 17 (8-16); BILIRUBIN,TOTAL 0.8 MG/DL (0.1-1.0); BLOOD UREA NITROGEN 77 MG/DL (7-18); BUN/CREATININE RATIO 17.4 (10.0-20.0); CALCIUM 7.9 MG/DL (8.5-10.1); CHLORIDE 99 MMOL/L (99-107); CREATININE 4.42 MG/DL (0.40-0.90); GLUCOSE 275 MG/DL (70-104); POTASSIUM 3.9 MMOL/L (3.5-5.1); PRO BRAIN NATRIURETIC PEPTIDE 19642 PG/ML (0-450); SODIUM 132 MMOL/L (135-145); TOTAL CARBON DIOXIDE 16.4 MMOL/L (24-32); TOTAL PROTEIN 5.4 G/DL (6.4-8.2); eCRCL 7 ML/MIN; eGFR 9 ML/MIN
[2023-02-26 03:48] LABS: ALANINE AMINOTRANSFERASE 2401 U/L (12-78); ASPARTATE AMINO TRANSFERASE 1368 U/L (10-37)
--- NOTE | 2023-02-26 04:00 | NUR ---
I paged Dr. Champagne as patient's PBNP is 19,642 and her CXR is worse than yesterday. Per MD stop fluids, give Lasix 40mg IV now.
[2023-02-26] MEDS ORDERED: furosemide 40mg/4ml inj IV ONE (04:05)
--- NOTE | 2023-02-26 06:07 | NUR ---
Patient on Dopamine drip and BP has been steadily increasing, is now 163/92. Parameters on state keep SBP >90. I paged Dr. Champagne for orders and she advised me to stop drip now.
--- NOTE | 2023-02-26 06:45 | NUR ---
Problems reprioritized. Patient report given, questions answered & plan of care reviewed with JILL Brenner.
--- NOTE | 2023-02-26 07:03 | NUR ---
Patient in room PCU 3026. I have received report from JILL Wang, and had the opportunity to ask questions and assume patient care.
[2023-02-26] MEDS ORDERED: dextrose 50%-water 50ml dispensing syringe IV PRN ×2 (09:00)
[2023-02-26] MEDS ORDERED: DEXTROSE 15 GM of carb/4 tabs (each vial/BOTTLE has 4 tablets) PO PRN ×2 (09:00)
[2023-02-26] MEDS ORDERED: MESSAGE TO PHARMACY PO ONE (09:00)
[2023-02-26] MEDS ORDERED: glucagon, human recombinant 1mg kit SUBCUT PRN (09:00)
[2023-02-26] MEDS: metroNIDAZOLE-Flagyl 500mg/NS 100 ML IV SCH ×2 (09:07→20:03)
[2023-02-26] MEDS: brimonidine 0.2% 5 ML ophthalmic drops EACHEYE SCH ×2 (09:11→20:03)
[2023-02-26] MEDS: heparin, porcine 5000 units/ml vial SQ SCH ×3 (09:12→16:06)
[2023-02-26] MEDS: amiodarone 200mg tablet PO SCH (09:13)
[2023-02-26] MEDS: timolol 0.5% ophthalmic solution 5ml bottle EACHEYE SCH ×2 (10:27→20:03)
--- NOTE | 2023-02-26 10:47 | NUR ---
BLADDER SCANNED PT D/T POOR URINE OUTPUT, NO FINDINGS
--- NOTE | 2023-02-26 11:27 | NUR ---
PAGE SENT PAGER ID: [phone] MESSAGE: [id number], GUIDO RYDER, PT'S HR 51, BP 105/65. THANK YOU, JAYME [id number]
[2023-02-26] MEDS: insulin Lispro (HumaLOG) vial - multi-dose SQ SCH ×2 (13:33→18:55)
[2023-02-26] MEDS ORDERED: ceFAZolin/D5W- 1GM premix 50 ML IV ONE (14:00)
[2023-02-26] MEDS: ceFAZolin/D5W- 1GM premix 50 ML IV SCH (14:05)
[2023-02-26] MEDS: sodium bicarbonate 1meq/ml inj 150 ML in dextrose 5%-water 1,000 ML IV SCH (14:11)
[2023-02-26 15:31] LABS: APTT 40 SECONDS (22-32); INR 1.4 INR; PROTHROMBIN TIME 14.9 SECONDS (9.0-12.0)
--- NOTE | 2023-02-26 18:12 | NUR ---
[id number], GUIDO SHAVER, LUIGI INCREASED WORK BREATHING, 5L, STATING AT 92. PLEASE COME AND ASSESS. THANK YOU, ELIDIA Addendum: 02/26/23 at 1819 by Elidia Wilson RN PAGE SENT
--- NOTE | 2023-02-26 18:25 | NUR ---
RAPID CALL ON PT. PT C/O DIFFICULTY BREATHING. O2SAT CHECKED-76%. O2 INCREASED TO 5L. PT'S SATURATION INCREASED TO 85%. RT REQUESTED AND REBREATHER MASK PLACE, O2 DROPPED TO 44%. PT APPEARED DUSKY AND RAPID WAS CALLED. THE ACCURACY OF THE PULSE OX WAS QUESTIONED. EAR PROBE PLACED, HANDS WARMED. FAMILY AT BEDSIDE. ABG TAKEN. PT IMPROVED AND COLOR RETURNED. DR. LINDSEY WAS NOTIFIED. RT PEREZ, ICU CN MAY, PCU SHELLY KIM, AND PRIMARY RN JAYME WERE PRESENT.
--- NOTE | 2023-02-26 18:30 | NUR ---
Patient in room PCU 3026. I have received report from JAYME and had the opportunity to ask questions and assume patient care.
--- NOTE | 2023-02-26 18:34 | NUR ---
Problems reprioritized. Patient report given, questions answered & plan of care reviewed with JILL VALLE.
[2023-02-26] MEDS ORDERED: furosemide 40mg/4ml inj IV SCH (20:00)
[2023-02-26] MEDS: furosemide 40mg/4ml inj IV SCH (20:04)
[2023-02-26] MEDS: latanoprost 0.005% 2.5ml ophthalmic drops EACHEYE SCH (20:37)
[2023-02-26] MEDS: insulin glargine (Lantus) pen - multi-dose SQ SCH (21:00)
[2023-02-26] MEDS ORDERED: ALPRAZolam 0.25mg tablet PO ONE (22:30)
--- NOTE | 2023-02-26 22:30 | NUR ---
PT RESTLESS. PT AND HER FAMILY REQUESTING SOMETHING TO HELP HER "REST TONIGHT" DR MONIQUE NOTIFIED: XANAX X 1 ORDERED.
[2023-02-27] VITALS (11 sets, daily range): BP systolic 87–158; BP diastolic 58–82; PULSE 50–61; RESP 20–29; TEMP 97.4–98.4; O2SAT 94–98
[2023-02-27] MEDS: sodium bicarbonate 1meq/ml inj 150 ML in dextrose 5%-water 1,000 ML IV SCH ×2 (03:42→13:42)
[2023-02-27 04:51] LABS: BASOPHILS % (AUTO) 0.1 % (0-1); EOSINOPHILS # (AUTO) 0.1 X10'3 (0-0.9); EOSINOPHILS % (AUTO) 0.6 % (0-6); HEMOGLOBIN 10.6 g/dl (12.0-16.0); LYMPHOCYTES # (AUTO) 0.5 X10'3 (1.1-4.8); LYMPHOCYTES % (AUTO) 2.7 % (21-51); MEAN CORPUSCULAR HEMOGLOBIN 31.8 PG (27.0-31.0); MEAN CORPUSCULAR VOLUME 96.6 FL (78-98); MEAN PLATELET VOLUME 8.9 FL (7.4-10.4); MONOCYTES % (AUTO) 5.6 % (2-12); NEUTROPHILS # (AUTO) 15.9 X10'3 (1.8-7.7); PLATELET COUNT 116 X10'3 (140-440); RED BLOOD COUNT 3.32 X10'6 (4.20-5.60); RED CELL DISTRIBUTION WIDTH 14.8 % (11.5-14.5); WHITE BLOOD COUNT 17.4 X10'3 (4.5-11.0)
[2023-02-27 05:09] LABS: ALBUMIN 1.8 G/DL (3.4-5.0); ALBUMIN/GLOBULIN RATIO 0.6 (1.1-1.5); ALKALINE PHOSPHATASE 135 IU/L (46-116); ANION GAP 11 (8-16); ASPARTATE AMINO TRANSFERASE 441 U/L (10-37); BILIRUBIN,TOTAL 0.6 MG/DL (0.1-1.0); BLOOD UREA NITROGEN 84 MG/DL (7-18); BUN/CREATININE RATIO 16.6 (10.0-20.0); CALCIUM 7.4 MG/DL (8.5-10.1); CHLORIDE 99 MMOL/L (99-107); CREATININE 5.07 MG/DL (0.40-0.90); GLUCOSE 157 MG/DL (70-104); POTASSIUM 3.8 MMOL/L (3.5-5.1); SODIUM 131 MMOL/L (135-145); TOTAL CARBON DIOXIDE 21.3 MMOL/L (24-32); eCRCL 6 ML/MIN; eGFR 8 ML/MIN
[2023-02-27 05:11] LABS: ALANINE AMINOTRANSFERASE 1766 U/L (12-78)
[2023-02-27 05:18] LABS: PLATELET ESTIMATE DECREASED; POIKILOCYTOSIS FEW; TOTAL CELLS COUNTED 100
[2023-02-27 05:19] LABS: SCHISTOCYTES FEW; TARGET CELLS FEW; TOXIC GRANULATION 1+
--- NOTE | 2023-02-27 06:32 | NUR ---
Problems reprioritized. Patient report given, questions answered & plan of care reviewed with JAYME.
--- NOTE | 2023-02-27 06:57 | NUR ---
Patient in room PCU 3026. I have received report from JILL VALLE, and had the opportunity to ask questions and assume patient care.
[2023-02-27 07:53] LABS: ALLEN'S TEST POSITIVE
[2023-02-27 07:54] LABS: MODE MASK-NRB; PATIENT TEMPERATURE 36.6
[2023-02-27 07:55] LABS: ABG BASE EXCESS -12.6 mmol/L (-2.0-2.0); ABG HCO3 14.6 mmol/L (22.0-26.0); ABG PCO2 (T) 37.6 mmHg (32.0-45.0); ABG PH (T) 7.205 (7.350-7.450); ABG PO2 (T) 244.5 mmHg (75.0-100.0); FCOHb 0.3 % (0.0-3.9); FHHb 0.4 % (0.0-5.0); FO2Hb 99.3 % (94-97); TOTAL HEMOGLOBIN 12.4 G/dl (12.0-16.0)
[2023-02-27 07:56] LABS: ABG OXYGEN SATURATION 99.6 % (94-97)
[2023-02-27] MEDS: heparin, porcine 5000 units/ml vial SQ SCH ×3 (08:00→16:21)
[2023-02-27] MEDS ORDERED: levoFLOXACIN-Levaquin 250mg/D5 50 ML IV SCH (08:00)
[2023-02-27] MEDS: brimonidine 0.2% 5 ML ophthalmic drops EACHEYE SCH ×2 (08:00→20:46)
[2023-02-27] MEDS ORDERED: ceFAZolin/D5W- 1GM premix 50 ML IV SCH (08:00)
[2023-02-27] MEDS: furosemide 40mg/4ml inj IV SCH ×2 (08:01→16:00)
[2023-02-27] MEDS: metroNIDAZOLE-Flagyl 500mg/NS 100 ML IV SCH (08:03)
[2023-02-27] MEDS: amiodarone 100mg tablet PO SCH (08:06)
[2023-02-27] MEDS: timolol 0.5% ophthalmic solution 5ml bottle EACHEYE SCH ×2 (08:07→20:46)
[2023-02-27] MEDS: ceFAZolin/D5W- 1GM premix 50 ML IV SCH (09:41)
--- NOTE | 2023-02-27 11:58 | NUR ---
Initial: Pt admit for AMS, NSTEMI, acute renal failure secondary to dehydration, sepsis with septic shock, and UTI. Per employment trainer note pt with GENNY. Diet was slowly advanced from NPO to liquids and now on a renal diet as of today. While on a liquid diet pt was eating poorly overall, documented with average 33% PO intake. Hopefully pt will eat better now that she's no longer on a liquid diet, if not pt would benefit from ONS and diet liberalization to regular as electrolytes are WNL with the exception of hyponatremia. LBM 02/25 x3 per EMR. Will continue to follow closely and make recommendations as appropriate. Recommendations: 1) Consider liberalizing to regular diet as electrolytes are WNL with the exception of hyponatremia 2) Monitor need for ONS/additional protein 3) Monitor need for routine bowel care 4) Scaled weight this admit; subsequent weekly scaled weights Addendum: 02/27/23 at [address] Amended: Links added.
[2023-02-27] MEDS: insulin Lispro (HumaLOG) vial - multi-dose SQ SCH ×2 (14:34→19:23)
[2023-02-27 16:11] LABS: A/G RATIO 0.8 (0.7-1.7); ALPHA-1-GLOBULIN 0.4 g/dL (0.0-0.4); ALPHA-2-GLOBULIN 1.1 g/dL (0.4-1.0); ANTINUCLEAR ANTIBODIES Negative (Negative); ANTISTREPTOLYSIN O AB 68.6 IU/mL (0.0-200.0); BETA GLOBULIN 0.6 g/dL (0.7-1.3); COMPLEMENT C3, SERUM 62 mg/dL (82-167); COMPLEMENT C4, SERUM 9 mg/dL (12-38); GAMMA GLOBULIN 0.6 g/dL (0.4-1.8); GLOBULIN, TOTAL 2.6 g/dL (2.2-3.9); M-SPIKE Not Observed g/dL (Not Observed); PROTEIN, TOTAL, SERUM 4.6 g/dL (6.0-8.5)
--- NOTE | 2023-02-27 18:30 | NUR ---
Problems reprioritized. Patient report given, questions answered & plan of care reviewed with JILL JONES.
--- NOTE | 2023-02-27 18:35 | NUR ---
Patient in room PCU 3026. I have received report from JILL Brenner and had the opportunity to ask questions and assume patient care. Patient sitting up eating dinner, family at the bedside. She is breathing and looking more comfortable today, I will continue to monitor.
[2023-02-27] MEDS: metolazone 2.5mg tablet PO SCH (20:45)
[2023-02-27] MEDS: metroNIDAZOLE 500mg tablet PO SCH (20:46)
[2023-02-27] MEDS: latanoprost 0.005% 2.5ml ophthalmic drops EACHEYE SCH (20:51)
[2023-02-27] MEDS: insulin glargine (Lantus) pen - multi-dose SQ SCH (20:57)
[2023-02-28] VITALS (8 sets, daily range): BP systolic 60–109; BP diastolic 30–63; PULSE 46–55; RESP 17–26; TEMP 97.2–98; O2SAT 97–100
[2023-02-28 06:05] LABS: HBSAG SCREEN Negative (Negative)
[2023-02-28 06:15] LABS: ALBUMIN, UR 57.9 % (.); ALPHA-2-GLOBULIN,UR 7.6 % (.); GAMMA GLOBULIN,UR 17.5 % (.); PROTEIN,TOTAL,URINE 436.6 mg/dL (Not Estab.)
[2023-02-28 07:41] LABS: ALANINE AMINOTRANSFERASE 756 U/L (12-78); ALBUMIN 1.6 G/DL (3.4-5.0); ALBUMIN/GLOBULIN RATIO 0.6 (1.1-1.5); ALKALINE PHOSPHATASE 113 IU/L (46-116); ANION GAP 11 (8-16); ASPARTATE AMINO TRANSFERASE 104 U/L (10-37); BILIRUBIN,TOTAL 0.5 MG/DL (0.1-1.0); BLOOD UREA NITROGEN 92 MG/DL (7-18); BUN/CREATININE RATIO 15.7 (10.0-20.0); CHLORIDE 99 MMOL/L (99-107); CREATININE 5.85 MG/DL (0.40-0.90); GLUCOSE 69 MG/DL (70-104); POTASSIUM 3.9 MMOL/L (3.5-5.1); SODIUM 130 MMOL/L (135-145); TOTAL CARBON DIOXIDE 19.9 MMOL/L (24-32); TOTAL PROTEIN 4.5 G/DL (6.4-8.2); eCRCL 5 ML/MIN; eGFR 7 ML/MIN
[2023-02-28 07:46] LABS: BASOPHILS # (AUTO) 0.1 X10'3 (0-0.2); BASOPHILS % (AUTO) 0.5 % (0-1); EOSINOPHILS # (AUTO) 0.3 X10'3 (0-0.9); EOSINOPHILS % (AUTO) 1.9 % (0-6); HEMATOCRIT 30.6 % (35.0-45.0); HEMOGLOBIN 10.2 g/dl (12.0-16.0); LYMPHOCYTES # (AUTO) 0.3 X10'3 (1.1-4.8); LYMPHOCYTES % (AUTO) 2.2 % (21-51); MEAN CORPUSCULAR HGB CONC 33.4 g/dL (33.0-36.5); MEAN CORPUSCULAR VOLUME 95.8 FL (78-98); MEAN PLATELET VOLUME 9.4 FL (7.4-10.4); MONOCYTES # (AUTO) 0.9 X10'3 (0-0.9); MONOCYTES % (AUTO) 6.4 % (2-12); NEUTROPHILS # (AUTO) 13.1 X10'3 (1.8-7.7); PLATELET COUNT 141 X10'3 (140-440); RED CELL DISTRIBUTION WIDTH 14.6 % (11.5-14.5); WHITE BLOOD COUNT 14.7 X10'3 (4.5-11.0)
[2023-02-28] MEDS ORDERED: normal saline 1000ml 100 ML IV PRN (08:00)
[2023-02-28] MEDS ORDERED: mannitol 12.5gm/50mL VIAL IV PRN (08:00)
[2023-02-28] MEDS ORDERED: heparin 1,000 units/ml 10ml inj HE ONE ×2 (08:00)
[2023-02-28] MEDS: metolazone 2.5mg tablet PO SCH (08:00)
[2023-02-28] MEDS: furosemide 40mg/4ml inj IV SCH ×3 (08:00→16:00)
[2023-02-28] MEDS ORDERED: albumin (human) 25% 100ml IV 100 ML IV PRN (08:00)
[2023-02-28] MEDS: heparin, porcine 5000 units/ml vial SQ SCH ×4 (08:00→23:53)
[2023-02-28] MEDS: amiodarone 100mg tablet PO SCH (08:13)
[2023-02-28] MEDS: metroNIDAZOLE 500mg tablet PO SCH (08:13)
[2023-02-28] MEDS: ceFAZolin/D5W- 1GM premix 50 ML IV SCH (08:14)
[2023-02-28] MEDS: brimonidine 0.2% 5 ML ophthalmic drops EACHEYE SCH ×2 (08:14→20:18)
[2023-02-28] MEDS: timolol 0.5% ophthalmic solution 5ml bottle EACHEYE SCH ×2 (08:14→20:18)
--- NOTE | 2023-02-28 10:54 | NUR ---
Problems reprioritized. Patient report given, questions answered & plan of care reviewed with JILL Brantley.
[2023-02-28] MEDS ORDERED: heparin 1,000unit/ml 10ml vial 10 ML ONE (11:21)
[2023-02-28] MEDS ORDERED: LIDOcaine 1% 30ml preserv. free vial ONE (11:22)
[2023-02-28] MEDS ORDERED: fentaNYL/PF 50MCG/1 ML 2ML syringe ONE (11:49)
[2023-02-28] MEDS ORDERED: diphenhydrAMINE 50 mg/ml inj ONE (11:49)
--- NOTE | 2023-02-28 11:52 | NUR ---
Pt taken to IR for TDC placement.
--- NOTE | 2023-02-28 11:52 | NUR ---
Patient in room PCU 3026. I have received report from Shannan MELCHOR and had the opportunity to ask questions and assume patient care.
--- NOTE | 2023-02-28 16:41 | NUR ---
Pt undergoing HD, pt had a 1600 Lasix medical associate that I held due to HD.
--- NOTE | 2023-02-28 17:47 | NUR ---
Pt was off for in IR for TCD placement during 1200 BS check, glucose check was skipped.
--- NOTE | 2023-02-28 18:40 | NUR ---
Problems reprioritized. Patient report given, questions answered & plan of care reviewed with Christal MELCHOR.
[2023-02-28] MEDS: acetaminophen 325mg tablet PO PRN (20:17)
[2023-02-28] MEDS: furosemide 40mg tablet PO SCH (20:18)
[2023-02-28] MEDS: insulin glargine (Lantus) pen - multi-dose SQ SCH (20:58)
[2023-02-28] MEDS: latanoprost 0.005% 2.5ml ophthalmic drops EACHEYE SCH (23:00)
[2023-02-28] MEDS ORDERED: normal saline 1000ml 1,000 ML IV ONE (23:05)
[2023-03-01] VITALS (20 sets, daily range): BP systolic 71–111; BP diastolic 39–74; PULSE 53–72; RESP 12–27; TEMP 97.7–98.2; O2SAT 91–100
--- NOTE | 2023-03-01 01:00 | NUR ---
BP dropped to 65/38. Patient assymptomatic . Dr. Dan notified, order for 1 liter bolus of normal saline over 2 hours.
[2023-03-01] MEDS ORDERED: mannitol 12.5gm/50mL VIAL IV ONE (06:25)
[2023-03-01] MEDS ORDERED: heparin 1,000 units/ml 10ml inj HE ONE ×2 (06:30)
[2023-03-01 06:36] LABS: BASOPHILS % (AUTO) 0.1 % (0-1); EOSINOPHILS # (AUTO) 0.2 X10'3 (0-0.9); EOSINOPHILS % (AUTO) 1.3 % (0-6); HEMATOCRIT 30.7 % (35.0-45.0); HEMOGLOBIN 10.3 g/dl (12.0-16.0); LYMPHOCYTES # (AUTO) 0.6 X10'3 (1.1-4.8); LYMPHOCYTES % (AUTO) 3.1 % (21-51); MEAN CORPUSCULAR HGB CONC 33.4 g/dL (33.0-36.5); MEAN CORPUSCULAR VOLUME 95.7 FL (78-98); MEAN PLATELET VOLUME 9.1 FL (7.4-10.4); MONOCYTES # (AUTO) 1.3 X10'3 (0-0.9); MONOCYTES % (AUTO) 7.3 % (2-12); NEUTROPHILS # (AUTO) 15.5 X10'3 (1.8-7.7); NEUTROPHILS % (AUTO) 88.2 % (42-75); PLATELET COUNT 160 X10'3 (140-440); RED BLOOD COUNT 3.21 X10'6 (4.20-5.60); RED CELL DISTRIBUTION WIDTH 14.5 % (11.5-14.5); WHITE BLOOD COUNT 17.6 X10'3 (4.5-11.0)
--- NOTE | 2023-03-01 06:41 | NUR ---
Patient report given, questions answered & plan of care reviewed with JILL Johns
[2023-03-01 07:02] LABS: ALANINE AMINOTRANSFERASE 398 U/L (12-78); ALBUMIN 1.7 G/DL (3.4-5.0); ALBUMIN/GLOBULIN RATIO 0.6 (1.1-1.5); ALKALINE PHOSPHATASE 114 IU/L (46-116); ANION GAP 11 (8-16); ASPARTATE AMINO TRANSFERASE 62 U/L (10-37); BILIRUBIN,TOTAL 0.6 MG/DL (0.1-1.0); BLOOD UREA NITROGEN 62 MG/DL (7-18); BUN/CREATININE RATIO 13.3 (10.0-20.0); CALCIUM 7.1 MG/DL (8.5-10.1); CHLORIDE 101 MMOL/L (99-107); CREATININE 4.67 MG/DL (0.40-0.90); GLUCOSE 117 MG/DL (70-104); SODIUM 133 MMOL/L (135-145); TOTAL CARBON DIOXIDE 21.2 MMOL/L (24-32); TOTAL PROTEIN 4.6 G/DL (6.4-8.2); eCRCL 7 ML/MIN; eGFR 9 ML/MIN
[2023-03-01 07:12] LABS: POTASSIUM 3.8 MMOL/L (3.5-5.1)
[2023-03-01] MEDS: amiodarone 100mg tablet PO SCH (07:49)
[2023-03-01] MEDS: ceFAZolin/D5W- 1GM premix 50 ML IV SCH (07:49)
[2023-03-01] MEDS: heparin, porcine 5000 units/ml vial SQ SCH ×2 (07:49→16:36)
[2023-03-01] MEDS: brimonidine 0.2% 5 ML ophthalmic drops EACHEYE SCH ×2 (07:50→21:30)
[2023-03-01] MEDS: timolol 0.5% ophthalmic solution 5ml bottle EACHEYE SCH ×2 (07:50→20:00)
[2023-03-01] MEDS: furosemide 40mg tablet PO SCH (07:50)
[2023-03-01] MEDS ORDERED: loperamide 2mg capsule PO PRN (08:35)
--- NOTE | 2023-03-01 10:19 | NUR ---
Pt's last BP was 70/45(51). has been notified and they will see pt on floor when they arrive.
--- NOTE | 2023-03-01 10:19 | NUR ---
Patient in room PCU 3026. I have received report from Christal MELCHOR and had the opportunity to ask questions and assume patient care.
[2023-03-01] MEDS: DOPamine 400mg/D5W 250ml 250 ML IV SCH ×2 (10:32→10:45)
--- NOTE | 2023-03-01 12:30 | NUR ---
Reassessment: Per EMR pt s/p TDC placement and dialysis 02/28 with 2L fluid removed per I&O. Diet has been advanced to regular though pt continues with poor PO intake, documented with average 28% PO intake not meeting estimated nutrient needs. Recommend Nepro ONS TID to assist with meeting estimated nutrient needs, to be sent pending physician approval in EMR. LBM 03/01 per EMR. Will continue to follow closely and make recommendations as appropriate. Recommendations: 1) Continue regular diet as electrolytes are WNL with the exception of hyponatremia and pt with poor PO intake 2) Nepro ONS TID, pending physician approval in EMR 3) Monitor need for routine bowel care 4) Scaled weight this admit; subsequent scaled weights with HD Addendum: 03/01/23 at [address] Amended: Links added.
[2023-03-01] MEDS: NUT.TX.IMP.RENAL FXN,LAC-REDUC (Nepro) 237 ML VANILLA PO SCH (13:00)
[2023-03-01] MEDS: metroNIDAZOLE 500mg tablet PO SCH ×2 (13:07→21:29)
--- NOTE | 2023-03-01 14:59 | NUR ---
PRESSURE ULCER EDUCATION: DEFINITION: A pressure ulcer is an area of skin that breaks down when you stay in one position too long. The constant pressure against the skin reduces the blood flow to that area and the affected tissue dies. CAUSES: "Being bedridden or in a wheelchair "Fragile skin "Having a chronic condition, such as diabetes or vascular disease "Inability to move certain parts of your body without assistance "Older age "Incontinence of urine or stool SYMPTOMS: "A reddened area that DOES NOT turn white when pressed on - this can be the beginning of a pressure ulcer "A blister, deep sore or a crater - these can be advanced pressure ulcers FIRST AID: "Relieve the pressure on this area "Keep the area clean and dry "Call your primary doctor if you see any of the above symptoms "DO NOT massage the area "DO NOT use a donut shaped or ring shaped pillow- these actually interfere with the blood flow and cause complications PREVENTION: "Check for pressure ulcers everyday "Change position at least every two hours to relieve pressure "Use items that help relieve pressure- pillows, sheepskin, foam padding, and powders. "Keep skin clean and dry "Eat healthy well balanced meals "Exercise daily IF YOU SEE ANY OF THESE SYMPTOMS WHILE IN THE HOSPITAL - TELL YOUR NURSE IMMEDIATELY. IF YOU SEE ANY OF THESE SYMPTOMS WHILE AT HOME OR HAVE ANY QUESTIONS OR CONCERNS ABOUT PRESSURE ULCERS - CALL YOUR PRIMARY DOCTOR IMMEDIATELY. Addendum: 03/01/23 at 1459 by Aaron Martinez RN Amended: Links added.
--- NOTE | 2023-03-01 15:13 | NUR ---
Pt started HD a few minutes ago. After 6 minutes of HD pt started to shake across her body and stare off to her side with eyes rolled up. This description was stated by both HD nurses and the pt's family that was in the room. When I was called in pt was back to normal and responding appropriately. Pt is now asymptomatic and vitally stable. HD has been stopped and HD nurses have notified Dr Morrissey, I have notified Dr Jo via his resident Dr. Marion.
--- NOTE | 2023-03-01 18:54 | NUR ---
Problems reprioritized. Patient report given, questions answered & plan of care reviewed with Karen MELCHOR.
[2023-03-01] MEDS: latanoprost 0.005% 2.5ml ophthalmic drops EACHEYE SCH (21:33)
[2023-03-01] MEDS: insulin glargine (Lantus) pen - multi-dose SQ SCH (21:40)
[2023-03-02] VITALS (15 sets, daily range): BP systolic 93–155; BP diastolic 53–87; PULSE 57–72; RESP 13–26; TEMP 97.6–98.4; O2SAT 83–99
[2023-03-02] MEDS: heparin, porcine 5000 units/ml vial SQ SCH ×3 (00:28→17:18)
--- NOTE | 2023-03-02 06:27 | NUR ---
Problems reprioritized. Patient report given, questions answered & plan of care reviewed with Fransisca
--- NOTE | 2023-03-02 07:00 | NUR ---
Patient in room PCU 3026. I have received report from Samaria MELCHOR and had the opportunity to ask questions and assume patient care.
[2023-03-02] MEDS: atorvastatin 20mg tablet PO SCH (07:51)
[2023-03-02] MEDS: aspirin 81mg, enteric-coated 1 TAB TABLET.DR PO SCH (07:51)
[2023-03-02] MEDS: amiodarone 100mg tablet PO SCH (07:52)
[2023-03-02] MEDS: ceFAZolin/D5W- 1GM premix 50 ML IV SCH (07:53)
[2023-03-02] MEDS: brimonidine 0.2% 5 ML ophthalmic drops EACHEYE SCH ×2 (07:54→21:34)
[2023-03-02] MEDS: timolol 0.5% ophthalmic solution 5ml bottle EACHEYE SCH ×2 (07:54→20:00)
[2023-03-02] MEDS: NUT.TX.IMP.RENAL FXN,LAC-REDUC (Nepro) 237 ML VANILLA PO SCH ×3 (08:00→18:00)
[2023-03-02 08:01] LABS: BASOPHILS % (AUTO) 0.1 % (0-1); EOSINOPHILS # (AUTO) 0.3 X10'3 (0-0.9); EOSINOPHILS % (AUTO) 1.7 % (0-6); HEMATOCRIT 34.7 % (35.0-45.0); HEMOGLOBIN 11.4 g/dl (12.0-16.0); LYMPHOCYTES % (AUTO) 4.8 % (21-51); MEAN CORPUSCULAR HEMOGLOBIN 31.7 PG (27.0-31.0); MEAN CORPUSCULAR HGB CONC 32.9 g/dL (33.0-36.5); MEAN CORPUSCULAR VOLUME 96.3 FL (78-98); MEAN PLATELET VOLUME 8.8 FL (7.4-10.4); MONOCYTES # (AUTO) 1.9 X10'3 (0-0.9); MONOCYTES % (AUTO) 9.3 % (2-12); NEUTROPHILS # (AUTO) 16.9 X10'3 (1.8-7.7); NEUTROPHILS % (AUTO) 84.1 % (42-75); PLATELET COUNT 204 X10'3 (140-440); RED BLOOD COUNT 3.61 X10'6 (4.20-5.60); RED CELL DISTRIBUTION WIDTH 14.4 % (11.5-14.5); WHITE BLOOD COUNT 20.1 X10'3 (4.5-11.0)
[2023-03-02 08:22] LABS: ALANINE AMINOTRANSFERASE 152 U/L (12-78); ALBUMIN 1.8 G/DL (3.4-5.0); ALBUMIN/GLOBULIN RATIO 0.6 (1.1-1.5); ALKALINE PHOSPHATASE 128 IU/L (46-116); ANION GAP 13 (8-16); ASPARTATE AMINO TRANSFERASE 36 U/L (10-37); BILIRUBIN,TOTAL 0.6 MG/DL (0.1-1.0); BLOOD UREA NITROGEN 72 MG/DL (7-18); BUN/CREATININE RATIO 13.5 (10.0-20.0); CALCIUM 7.6 MG/DL (8.5-10.1); CHLORIDE 99 MMOL/L (99-107); CREATININE 5.32 MG/DL (0.40-0.90); GLUCOSE 235 MG/DL (70-104); SODIUM 132 MMOL/L (135-145); TOTAL CARBON DIOXIDE 20.5 MMOL/L (24-32); eCRCL 6 ML/MIN; eGFR 8 ML/MIN
[2023-03-02] MEDS: metroNIDAZOLE 500mg tablet PO SCH ×2 (09:00→21:34)
[2023-03-02 09:13] LABS: PLATELET ESTIMATE NORMAL; POIKILOCYTOSIS FEW; POLYCHROMASIA FEW
[2023-03-02] MEDS: DOPamine 400mg/D5W 250ml 250 ML IV SCH (11:28)
--- NOTE | 2023-03-02 11:52 | NUR ---
Contacted Dr Gonzalez and he wants dialysis today and states OK to use yesterdays orders. Misha- dialysis nurse notified. Please change dialyzer to Revaclear 400 per gamemaster.
[2023-03-02] MEDS ORDERED: albumin (human) 25% 100 ML IV solution IV ONE (13:10)
[2023-03-02] MEDS: insulin Lispro (HumaLOG) vial - multi-dose SQ SCH (14:39)
[2023-03-02] MEDS: insulin glargine (Lantus) pen - multi-dose SQ SCH (21:00)
[2023-03-02] MEDS: latanoprost 0.005% 2.5ml ophthalmic drops EACHEYE SCH (21:35)
[2023-03-03] VITALS (12 sets, daily range): BP systolic 113–159; BP diastolic 55–87; PULSE 60–75; RESP 16–21; TEMP 96.7–97.7; O2SAT 93–97
[2023-03-03] MEDS: heparin, porcine 5000 units/ml vial SQ SCH ×2 (00:32→08:53)
--- NOTE | 2023-03-03 04:12 | NUR ---
PAGER ID: [phone] MESSAGE: Carlo Richard Constance in RM [id number] currently on dopamine 3mcg/kg/hr. I had a question regarding elevated bp and titration of medication. Sunny MELCHOR PCU BP elevated to 159/79 currently with sys bp maintaining 140-150's, contacted Dr. Hurtado and titrating dopamine to 2mcg/kg. Patient asleep in bed respirations even and unlabored, no s/s of distress visible. Will continue with current plan of care.
[2023-03-03] MEDS ORDERED: DOPamine 400mg/D5W 250ml 250 ML IV SCH (04:50)
[2023-03-03] MEDS: ceFAZolin/D5W- 1GM premix 50 ML IV SCH (08:00)
[2023-03-03] MEDS: atorvastatin 20mg tablet PO SCH ×2 (08:00→08:54)
[2023-03-03] MEDS: aspirin 81mg, enteric-coated 1 TAB TABLET.DR PO SCH ×2 (08:00→08:55)
[2023-03-03] MEDS: brimonidine 0.2% 5 ML ophthalmic drops EACHEYE SCH (08:54)
[2023-03-03] MEDS: timolol 0.5% ophthalmic solution 5ml bottle EACHEYE SCH (08:54)
[2023-03-03] MEDS: amiodarone 100mg tablet PO SCH (08:54)
[2023-03-03] MEDS: NUT.TX.IMP.RENAL FXN,LAC-REDUC (Nepro) 237 ML VANILLA PO SCH (08:55)
[2023-03-03] MEDS: metroNIDAZOLE 500mg tablet PO SCH (08:55)
[2023-03-03] MEDS: insulin Lispro (HumaLOG) vial - multi-dose SQ SCH (10:33)
--- NOTE | 2023-03-03 11:52 | NUR ---
Ernesto Consult: Jake Orozco 13 w/ R heel DTI and L leg small open area per [facility] note. Addendum: 03/03/23 at [address] Amended: Links added.
== END 2023-03-03 16:23 | DRG 871 ==
LOC: ER 21:17 → ED HOLD 23:59 → EDBEDREQ 02-24 18:19 → PCU 3S 02-24 19:24
PROVIDERS: ADMIT Surgery Surgical Critical Care; ATTEND Internal Medicine
PROC: 02HV33Z Insertion of Infusion Device into Superior Vena Cava, Percutaneous Approach (ICD-10-PCS; 2023-02-23)
PROC: B3251ZZ Computerized Tomography (CT Scan) of Bilateral Common Carotid Arteries using Low Osmolar Contrast (ICD-10-PCS; 2023-02-23)
PROC: B32G1ZZ Computerized Tomography (CT Scan) of Bilateral Vertebral Arteries using Low Osmolar Contrast (ICD-10-PCS; 2023-02-23)
PROC: B32R1ZZ Computerized Tomography (CT Scan) of Intracranial Arteries using Low Osmolar Contrast (ICD-10-PCS; 2023-02-23)
PROC: B3281ZZ Computerized Tomography (CT Scan) of Bilateral Internal Carotid Arteries using Low Osmolar Contrast (ICD-10-PCS; 2023-02-23)
PROC: 0JH63XZ Insertion of Tunneled Vascular Access Device into Chest Subcutaneous Tissue and Fascia, Percutaneous Approach (ICD-10-PCS; principal; 2023-02-28)
PROC: 02HV33Z Insertion of Infusion Device into Superior Vena Cava, Percutaneous Approach (ICD-10-PCS; 2023-02-28)
PROC: B548ZZA Ultrasonography of Superior Vena Cava, Guidance (ICD-10-PCS; 2023-02-28)
PROC: B5181ZA Fluoroscopy of Superior Vena Cava using Low Osmolar Contrast, Guidance (ICD-10-PCS; 2023-02-28)
PROC: 5A1D70Z Performance of Urinary Filtration, Intermittent, Less than 6 Hours Per Day (ICD-10-PCS; 2023-02-28)
DX: A41.51 Sepsis due to Escherichia coli [E. coli] (principal); G93.41 Metabolic encephalopathy; I21.A1 Myocardial infarction type 2; R65.21 Severe sepsis with septic shock; J96.00 Acute respiratory failure, unspecified whether with hypoxia or hypercapnia; N17.0 Acute kidney failure with tubular necrosis; E87.20 Acidosis, unspecified; I50.20 Unspecified systolic (congestive) heart failure; I48.20 Chronic atrial fibrillation, unspecified; N30.01 Acute cystitis with hematuria; N04.9 Nephrotic syndrome with unspecified morphologic changes; E87.1 Hypo-osmolality and hyponatremia; Z66 Do not resuscitate; Z20.822 Contact with and (suspected) exposure to COVID-19; E11.22 Type 2 diabetes mellitus with diabetic chronic kidney disease; E86.0 Dehydration; D63.8 Anemia in other chronic diseases classified elsewhere; D69.6 Thrombocytopenia, unspecified; B96.20 Unspecified Escherichia coli [E. coli] as the cause of diseases classified elsewhere; N14.11 Contrast-induced nephropathy; N26.1 Atrophy of kidney (terminal); I05.0 Rheumatic mitral stenosis; R00.1 Bradycardia, unspecified; R19.7 Diarrhea, unspecified; R74.01 Elevation of levels of liver transaminase levels; I65.23 Occlusion and stenosis of bilateral carotid arteries; N18.30 Chronic kidney disease, stage 3 unspecified; Z79.01 Long term (current) use of anticoagulants; Z79.82 Long term (current) use of aspirin; Z79.899 Other long term (current) drug therapy; Z86.73 Personal history of transient ischemic attack (TIA), and cerebral infarction without residual deficits; Z87.440 Personal history of urinary (tract) infections; Z88.1 Allergy status to other antibiotic agents; Z88.2 Allergy status to sulfonamides; Z79.4 Long term (current) use of insulin
CPT/HCPCS: 36415; 36558; 36600; 70450; 70496; 70498; 71045; 71250; 74176; 76937; 77001; 80053; 81001; 82570; 82803; 82948; 83036; 83605; 83615; 83735; 83880; 84145; 84155; 84156; 84165; 84166; 84300; 84439; 84443; 84484; 85007; 85008; 85018; 85025; 85610; 85651; 85730; 86038; 86060; 86140; 86160; 86430; 87040; 87077; 87081; 87088; 87186; 87207; 87324; 87340; 87449; 87811; 93005; 93306; 94799; 96365; 97161; 97530; 97535; 99285; A4353; A4620; A5200; A6213; A6222; A6223; A6250; A6253; A6258; A6446; A6449; C1750; C1751; C1758; C1769; G0378; J0690; J0696; J1200; J1265; J1644; J1815; J1940; J1956; J2150; J2543; J3010; J3490; J7030; J7040; J7070; J7120; P9047; Q9967

== ENCOUNTER 2023-04-23 10:54 | Outpatient (CLI) | payer MEDICARE, OTHER ==
[~2023-04-23 10:54] MED LIST changes: +AMI200T PO; +APIX2.5T PO; +BIMA2.5D EACHEYE; +BRIM5DRO2 EACHEYE; -CHLO25TA2 PO; -CLIN-142 PO; -CLOP75TA15 PO; -DORZ10DR32 EACHEYE; +ESTR42.510 VG; -ESTR42.53 VG; -HYDR-4383 PO; -INSU300I; +LANTUS SQ; -LEVO750T21 PO; +NOVLG SQ
== END 2023-04-23 23:59 | disposition home or self-care (01) ==
LOC: VAS 10:54
PROVIDERS: ATTEND Family Medicine
DX: I65.23 Occlusion and stenosis of bilateral carotid arteries (principal)
CPT/HCPCS: 93925